=== PATIENT | female | born 1950 | race Caucasian/White ===

== ENCOUNTER 2021-08-02 09:41 | Inpatient (IN) ==
--- NOTE | 2021-08-02 10:08 | Emergency Department Note ---
History of Present Illness General Chief complaint: Illness Time Seen by Provider: 08/02/21 09:45 Source: patient History of Present Illness Provider complaint: Shortness of breath Onset (ago): day(s) Location: chest Pain Consistency: + constant Quality: + other (Short of breath) Relieved By: + other (Oxygen) Exacerbated By: + other (Activity) Associated symptoms: + shortness of breath; no chest pain, no cough, no fever/chills, no malaise or no nausea/vomiting This is a 71-year-old female with a history of hypertension presenting with shortness of breath. She started feeling short of breath about 2 days ago. She states that she quit smoking about 30 days ago. She has had no cough. She states her shortness of breath is better with oxygen and worse with any sort of activity. She has no associated chest discomfort. She does not use oxygen at home. She states that she recently had a cardiac catheterization which she says is normal. She denies any leg swelling or pain, recent immobilization or travel. She has no history of PE or DVT. She has been vaccinated for Covid back in January. She denies any known exposure. She has had no fever or cough or cold symptoms or loss of taste or smell. She has had loose and watery diarrhea for the past 2 days. She denies any abdominal pain. She denies any urinary symptoms. She denies any history of emphysema or known lung disease. Home Medications Medication Instructions Recorded Confirmed Type acetaminophen 500 mg tablet 1,000 mg PO Q6H PRN 08/02/21 08/02/21 History (Tylenol Extra Strength) doxepin 50 mg capsule 50 mg PO HS 08/02/21 08/02/21 History felodipine 5 mg tablet,extended 5 mg PO HS 08/02/21 08/02/21 History release 24 hr metoprolol succinate 50 mg 50 mg PO BID 08/02/21 08/02/21 History tablet,extended release 24 hr omeprazole 20 mg capsule,delayed 20 mg PO DAILY 08/02/21 08/02/21 History release Allergies Allergy/AdvReac Type Severity Reaction Status Date / Time Iodinated Contrast Media Allergy Severe Difficulty Verified 08/02/21 11:19 Breathing Past Med/Surg History Medical History (Updated 08/02/21 @ 15:55 by Thom Bright MD) Hypertension Surgical History (Updated 08/02/21 @ 14:23 by LYNETTE Baptiste) H/O lumpectomy H/O tubal ligation Social History Smoking Status: Former smoker Tobacco Type: Cigarettes Smoking End Date: July 07, 2021; Preferred Language: [place] Feels Safe at Home: Yes Review of Systems See HPI for pertinent positives & negatives. and A total of 10 systems reviewed and were otherwise negative Physical Exam Vital Signs Vital Signs - 24 hr 08/02/21 09:41 08/02/21 09:42 08/02/21 09:49 Temperature 36.8 C Temperature Source Temporal Artery Scan Pulse Rate 99 H 99 H 165 H Pulse Rate from SpO2 Sensor 100 H Respiratory Rate 34 H 34 H 40 H Respiratory Effort / Characteristics Labored Short of Breath Respiratory Pattern Tachypnea Blood Pressure 123/77 118/74 Blood Pressure Mean 92 88 Blood Pressure Position Sitting Pulse Oximetry 74 L 97 86 L Oxygen Delivery Method Room Air Oxymask Nasal Cannula Oxygen Flow Rate 8 4 Sepsis Recent Fever Within 48 Hours No Sepsis New/Unexplained Change in Mental Status N/A Sepsis Action Taken by Nursing No Action Required 08/02/21 10:00 08/02/21 10:30 08/02/21 10:32 Temperature Temperature Source Pulse Rate 95 H 95 H 92 H Pulse Rate from SpO2 Sensor 95 H 92 H Respiratory Rate 36 H 34 H 37 H Respiratory Effort / Characteristics Respiratory Pattern Blood Pressure 115/66 119/62 Blood Pressure Mean 82 81 Blood Pressure Position Pulse Oximetry 99 99 99 Oxygen Delivery Method Oxymask Oxygen Flow Rate 6 Sepsis Recent Fever Within 48 Hours Sepsis New/Unexplained Change in Mental Status Sepsis Action Taken by Nursing 08/02/21 11:00 08/02/21 12:30 08/02/21 13:01 Temperature Temperature Source Pulse Rate 96 H 88 87 Pulse Rate from SpO2 Sensor 96 H 88 87 Respiratory Rate 32 H 32 H 30 H Respiratory Effort / Characteristics Respiratory Pattern Blood Pressure 118/74 131/84 119/80 Blood Pressure Mean 88 99 93 Blood Pressure Position Pulse Oximetry 97 91 99 Oxygen Delivery Method Oxygen Flow Rate Sepsis Recent Fever Within 48 Hours Sepsis New/Unexplained Change in Mental Status Sepsis Action Taken by Nursing 08/02/21 14:55 08/02/21 15:00 Temperature Temperature Source Pulse Rate 97 H 93 H Pulse Rate from SpO2 Sensor 96 H 96 H Respiratory Rate 34 H 24 Respiratory Effort / Characteristics Respiratory Pattern Blood Pressure 131/69 Blood Pressure Mean 89 Blood Pressure Position Pulse Oximetry 98 98 Oxygen Delivery Method Oxygen Flow Rate Sepsis Recent Fever Within 48 Hours Sepsis New/Unexplained Change in Mental Status Sepsis Action Taken by Nursing Constitutional: Vital signs reviewed. Eyes: Pupils are equal round reactive to light. Conjunctiva are noninjected. ENT: Pharynx is clear without erythema or exudate. Mucous membranes are dry. Neck supple without meningeal signs. Respiratory: Clear to auscultation bilaterally. Breath sounds are equal bilaterally. No wheezing or rales. No stridor. Cardiovascular: Regular rate and rhythm. No rubs or gallops. GI: Soft, nondistended and nontender. Bowel sounds are present. Musculoskeletal: No peripheral edema. No lower extremity tenderness. Integumentary: No cyanosis. or jaundice. Neurological: The patient is awake and alert. Hard of hearing. No focal deficits. Psychiatric: Normal affect. Not anxious appearing. Course Administered Medications Discontinued Medications Acetaminophen (Acetaminophen 325 Mg Tab) 650 mg PO NOW STA Stop: 08/02/21 11:31 Last Admin: 08/02/21 11:56 Dose: 650 mg Documented by: [id number] Azithromycin (Azithromycin 250 Mg Tab) 500 mg PO NOW ONE Stop: 08/02/21 12:42 Last Admin: 08/02/21 13:43 Dose: 500 mg Documented by: [id number] Ceftriaxone Sodium (Rocephin) 2,000 mg in 70 mls @ 140 mls/hr IV NOW STA Stop: 08/02/21 13:10 Last Infusion: 08/02/21 14:12 Dose: 0 mls/hr Documented by: [id number] Admin: 08/02/21 13:42 Dose: 140 mls/hr Documented by: [id number] Ioversol (Optiray 320 125ml) 120 ml IV ONCE ONE Stop: 08/02/21 10:53 Last Admin: 08/02/21 10:52 Dose: 120 ml Documented by: [id number] Critical Care Time Critical Care Time: Yes Total Critical Care Time: 40 I have personally spent approximately 40 minutes of critical care time in the direct management of this patient. This includes bedside care, interpretation of diagnostic studies, and testing, discussion with consultants, patient, and family members, and other required patient management activities. These minutes are in excess of all separately billable procedures. Medical Decision Making Differential Diagnosis COVID-19, multifocal pneumonia, hypoxic respiratory failure, hypercapnia, pulmonary embolism Medical Records Attestation: I reviewed the patient's medical records. I did perform a limited focused review of portions of the patient's old chart on the electronic medical record. The patient has had no recent pertinent visits to this hospital. I did obtain records via the [facility] system and she was seen on July 21 by her doctor for urinary symptoms and treated with Bactrim. Her prior urine culture grew out pansensitive E. coli. She was seen by cardiology July 22 for routine follow-up visit for labile hypertension. She did not have a cardiac catheterization. She did have an echocardiogram from February 27, 2021 her EF was 60-64. The LV wall thickness is mildly increased concentrically. No wall motion abnormality. The ventricular diastolic function is mildly abnormal grade 1. She was noted to have nocturnal oximetry testing which showed significant hypoxia. She declined the use of supplemental O2 as she had no symptoms. Urine culture from July 21 grew out pansensitive E. coli. Home Medications Current Medication List: was personally reviewed by me Laboratory Data Attestation: I reviewed the patient's lab results. Result diagrams: 08/02/21 10:27 08/02/21 10:27 Lab Results 08/02/21 08/02/21 08/02/21 Range/Units 10:27 10:27 10:27 WBC 11.31 H (4.8-10.8) K/uL RBC 5.07 (4.2-5.4) M/uL Hgb 15.8 (12.0-16.0) g/dL POC Hgb (12.0-16.0) g/dl Hct 47.4 H (37-47) % POC Hct (37-47) % MCV 93.5 (80-100) fL MCH 31.2 (25-34) pg MCHC 33.3 (32-36) g/dL RDW Std Deviation 47.3 H (36.4-46.3) fL RDW Coeff of Jose 14.1 (11.5-14.5) % Plt Count 78 L (130-400) K/uL MPV 10.1 (7.4-10.4) fL Immature Gran % (Auto) 1.3 % Neut % (Auto) 75.5 % Lymph % (Auto) 17.9 % [place] % (Auto) 4.8 % Eos % (Auto) 0.3 % Baso % (Auto) 0.2 % Neut # (Auto) 8.54 H (1.4-6.5) K/uL Lymph # (Auto) 2.03 (1.2-3.4) K/uL [place] # (Auto) 0.54 (0.11-0.59) K/uL Eos # (Auto) 0.03 (0-0.5) K/uL Baso # (Auto) 0.02 (0-0.2) K/uL Immature Gran # (Auto) 0.15 H (0.00-0.02) K/uL Absolute Nucleated RBC 0.21 H (0-0) K/uL Nucleated RBC % (auto) 1.8 % PT 16.2 H (9.0-12.0) Seconds INR 1.7 H (0.9-1.1) APTT 31.5 H (21.0-31.0) Seconds PTT Ratio 1.2 D-Dimer 10386 H* (0-500) ug/L FEU ABG pH (7.35-7.45) ABG pCO2 (35-46) mmHg ABG pO2 (80-95) mmHg ABG HCO3 (19-24) mmol/L ABG O2 Saturation (90-95) % ABG Base Excess (-9-1.8) mEq/L Anthony Test (Pos) Barometric Pressure mm/Hg Oxygen Given POC Sodium (135-144) mmol/L Sodium 137 (136-145) mmol/L POC Potassium (3.3-5.0) mmol/L Potassium 5.3 H (3.5-5.1) mmol/L POC Chloride (101-112) mmol/L Chloride 108 H (98-107) mmol/L Carbon Dioxide 19 L (21-32) mmol/L POC Total CO2 (24-31) mmol/L Anion Gap 10.0 (3-11) POC Anion Gap (16-25) mmol/L POC BUN (7-18) mg/dl BUN 84 H (7-18) mg/dl Creatinine 1.38 H (0.6-1.2) mg/dl POC Creatinine (0.6-1.3) mg/dl Est Cr Clr Drug Dosing 32.1 ml/min Est GFR ( Amer) 44.8 ml/min Est GFR (Non-Af Amer) 38.6 ml/min BUN/Creatinine Ratio 60.9 H (10-20) Glucose 110 H (70-99) mg/dl POC Glucose (other) (70-99) mg/dl Lactate (0.4-2.0) mmol/L Calcium 8.3 L (8.5-10.1) mg/dl POC Ioniz Calcium Antonino (1.12-1.32) mmol/l Magnesium 2.5 H (1.8-2.4) mg/dl Total Bilirubin 0.7 (0.2-1) mg/dl AST 370 H (15-37) U/L ALT 93 H (12-78) U/L Alkaline Phosphatase 254 H (45-117) U/L Troponin I < 0.015 (0-0.045) ng/ml Total Protein 7.2 (6.4-8.2) gm/dl Albumin 3.0 L (3.4-5.0) gm/dl Globulin 4.2 H (2.5-4.0) gm/dl Albumin/Globulin Ratio 0.7 L (0.9-2) Urine Color Urine Appearance (Clear) Urine pH (4.5-7.5) Ur Specific [place] (1.000-1.030) Urine Protein (Negative) Urine Glucose (UA) (Negative) Urine Ketones (Negative) Urine Blood (Negative) Urine Nitrite (Negative) Urine Bilirubin (Negative) Urine Urobilinogen (Negative) Ur Leukocyte Esterase (Negative) Urine WBC (Auto) (0-5) /hpf Urine RBC (Auto) (0-4) /hpf U Hyaline Cast (Auto) (0-5) /lpf U Epithel Cells (Auto) (0-5) /lpf Urine Bacteria (Auto) (Negative) Granular Casts (0) /lpf Urine Yeast Anaplasma Smear Lyme Disease IgG Ab (Negative) Lyme Disease IgM Ab (Negative) COVID-19 Eval Order SARS-CoV-2 (PCR) (Negative) 08/02/21 08/02/21 08/02/21 Range/Units 10:30 10:30 10:37 WBC (4.8-10.8) K/uL RBC (4.2-5.4) M/uL Hgb (12.0-16.0) g/dL POC Hgb 16.3 H (12.0-16.0) g/dl Hct (37-47) % POC Hct 48 H (37-47) % MCV (80-100) fL MCH (25-34) pg MCHC (32-36) g/dL RDW Std Deviation (36.4-46.3) fL RDW Coeff of Jose (11.5-14.5) % Plt Count (130-400) K/uL MPV (7.4-10.4) fL Immature Gran % (Auto) % Neut % (Auto) % Lymph % (Auto) % [place] % (Auto) % Eos % (Auto) % Baso % (Auto) % Neut # (Auto) (1.4-6.5) K/uL Lymph # (Auto) (1.2-3.4) K/uL [place] # (Auto) (0.11-0.59) K/uL Eos # (Auto) (0-0.5) K/uL Baso # (Auto) (0-0.2) K/uL Immature Gran # (Auto) (0.00-0.02) K/uL Absolute Nucleated RBC (0-0) K/uL Nucleated RBC % (auto) % PT (9.0-12.0) Seconds INR (0.9-1.1) APTT (21.0-31.0) Seconds PTT Ratio D-Dimer (0-500) ug/L FEU ABG pH (7.35-7.45) ABG pCO2 (35-46) mmHg ABG pO2 (80-95) mmHg ABG HCO3 (19-24) mmol/L ABG O2 Saturation (90-95) % ABG Base Excess (-9-1.8) mEq/L Anthony Test (Pos) Barometric Pressure mm/Hg Oxygen Given POC Sodium 138 (135-144) mmol/L Sodium (136-145) mmol/L POC Potassium 5.5 H (3.3-5.0) mmol/L Potassium (3.5-5.1) mmol/L POC Chloride 110 (101-112) mmol/L Chloride (98-107) mmol/L Carbon Dioxide (21-32) mmol/L POC Total CO2 20 L (24-31) mmol/L Anion Gap (3-11) POC Anion Gap 15.0 L (16-25) mmol/L POC BUN 85 H (7-18) mg/dl BUN (7-18) mg/dl Creatinine (0.6-1.2) mg/dl POC Creatinine 1.4 H (0.6-1.3) mg/dl Est Cr Clr Drug Dosing ml/min Est GFR ( Amer) ml/min Est GFR (Non-Af Amer) ml/min BUN/Creatinine Ratio (10-20) Glucose (70-99) mg/dl POC Glucose (other) 110 H (70-99) mg/dl Lactate (0.4-2.0) mmol/L Calcium (8.5-10.1) mg/dl POC Ioniz Calcium Antonino 1.12 (1.12-1.32) mmol/l Magnesium (1.8-2.4) mg/dl Total Bilirubin (0.2-1) mg/dl AST (15-37) U/L ALT (12-78) U/L Alkaline Phosphatase (45-117) U/L Troponin I (0-0.045) ng/ml Total Protein (6.4-8.2) gm/dl Albumin (3.4-5.0) gm/dl Globulin (2.5-4.0) gm/dl Albumin/Globulin Ratio (0.9-2) Urine Color Urine Appearance (Clear) Urine pH (4.5-7.5) Ur Specific [place] (1.000-1.030) Urine Protein (Negative) Urine Glucose (UA) (Negative) Urine Ketones (Negative) Urine Blood (Negative) Urine Nitrite (Negative) Urine Bilirubin (Negative) Urine Urobilinogen (Negative) Ur Leukocyte Esterase (Negative) Urine WBC (Auto) (0-5) /hpf Urine RBC (Auto) (0-4) /hpf U Hyaline Cast (Auto) (0-5) /lpf U Epithel Cells (Auto) (0-5) /lpf Urine Bacteria (Auto) (Negative) Granular Casts (0) /lpf Urine Yeast Anaplasma Smear Lyme Disease IgG Ab (Negative) Lyme Disease IgM Ab (Negative) COVID-19 Eval Order Covid19 at [facility] SARS-CoV-2 (PCR) NEGATIVE (Negative) 08/02/21 08/02/21 08/02/21 Range/Units 10:51 10:52 11:15 WBC (4.8-10.8) K/uL RBC (4.2-5.4) M/uL Hgb (12.0-16.0) g/dL POC Hgb (12.0-16.0) g/dl Hct (37-47) % POC Hct (37-47) % MCV (80-100) fL MCH (25-34) pg MCHC (32-36) g/dL RDW Std Deviation (36.4-46.3) fL RDW Coeff of Jose (11.5-14.5) % Plt Count (130-400) K/uL MPV (7.4-10.4) fL Immature Gran % (Auto) % Neut % (Auto) % Lymph % (Auto) % [place] % (Auto) % Eos % (Auto) % Baso % (Auto) % Neut # (Auto) (1.4-6.5) K/uL Lymph # (Auto) (1.2-3.4) K/uL [place] # (Auto) (0.11-0.59) K/uL Eos # (Auto) (0-0.5) K/uL Baso # (Auto) (0-0.2) K/uL Immature Gran # (Auto) (0.00-0.02) K/uL Absolute Nucleated RBC (0-0) K/uL Nucleated RBC % (auto) % PT (9.0-12.0) Seconds INR (0.9-1.1) APTT (21.0-31.0) Seconds PTT Ratio D-Dimer (0-500) ug/L FEU ABG pH 7.32 L (7.35-7.45) ABG pCO2 35 (35-46) mmHg ABG pO2 150 H (80-95) mmHg ABG HCO3 18 L (19-24) mmol/L ABG O2 Saturation 99.0 H (90-95) % ABG Base Excess -7.4 (-9-1.8) mEq/L Anthony Test Pos (Pos) Barometric Pressure 733.5 mm/Hg Oxygen Given 6 L POC Sodium (135-144) mmol/L Sodium (136-145) mmol/L POC Potassium (3.3-5.0) mmol/L Potassium (3.5-5.1) mmol/L POC Chloride (101-112) mmol/L Chloride (98-107) mmol/L Carbon Dioxide (21-32) mmol/L POC Total CO2 (24-31) mmol/L Anion Gap (3-11) POC Anion Gap (16-25) mmol/L POC BUN (7-18) mg/dl BUN (7-18) mg/dl Creatinine (0.6-1.2) mg/dl POC Creatinine (0.6-1.3) mg/dl Est Cr Clr Drug Dosing ml/min Est GFR ( Amer) ml/min Est GFR (Non-Af Amer) ml/min BUN/Creatinine Ratio (10-20) Glucose (70-99) mg/dl POC Glucose (other) (70-99) mg/dl Lactate 1.2 (0.4-2.0) mmol/L Calcium (8.5-10.1) mg/dl POC Ioniz Calcium Antonino (1.12-1.32) mmol/l Magnesium (1.8-2.4) mg/dl Total Bilirubin (0.2-1) mg/dl AST (15-37) U/L ALT (12-78) U/L Alkaline Phosphatase (45-117) U/L Troponin I (0-0.045) ng/ml Total Protein (6.4-8.2) gm/dl Albumin (3.4-5.0) gm/dl Globulin (2.5-4.0) gm/dl Albumin/Globulin Ratio (0.9-2) Urine Color Dark Yellow Urine Appearance Cloudy A (Clear) Urine pH 5.0 (4.5-7.5) Ur Specific [place] 1.022 (1.000-1.030) Urine Protein 1+ H (Negative) Urine Glucose (UA) Negative (Negative) Urine Ketones 1+ H (Negative) Urine Blood 3+ H (Negative) Urine Nitrite Negative (Negative) Urine Bilirubin Negative (Negative) Urine Urobilinogen Negative (Negative) Ur Leukocyte Esterase 3+ H (Negative) Urine WBC (Auto) >30 H (0-5) /hpf Urine RBC (Auto) 0-4 (0-4) /hpf U Hyaline Cast (Auto) 5-10 H (0-5) /lpf U Epithel Cells (Auto) >30 H (0-5) /lpf Urine Bacteria (Auto) 1+ H (Negative) Granular Casts 1-5 H (0) /lpf Urine Yeast Not Reportable Anaplasma Smear Lyme Disease IgG Ab (Negative) Lyme Disease IgM Ab (Negative) COVID-19 Eval Order SARS-CoV-2 (PCR) (Negative) 08/02/21 08/02/21 Range/Units 11:59 11:59 WBC (4.8-10.8) K/uL RBC (4.2-5.4) M/uL Hgb (12.0-16.0) g/dL POC Hgb (12.0-16.0) g/dl Hct (37-47) % POC Hct (37-47) % MCV (80-100) fL MCH (25-34) pg MCHC (32-36) g/dL RDW Std Deviation (36.4-46.3) fL RDW Coeff of Jose (11.5-14.5) % Plt Count (130-400) K/uL MPV (7.4-10.4) fL Immature Gran % (Auto) % Neut % (Auto) % Lymph % (Auto) % [place] % (Auto) % Eos % (Auto) % Baso % (Auto) % Neut # (Auto) (1.4-6.5) K/uL Lymph # (Auto) (1.2-3.4) K/uL [place] # (Auto) (0.11-0.59) K/uL Eos # (Auto) (0-0.5) K/uL Baso # (Auto) (0-0.2) K/uL Immature Gran # (Auto) (0.00-0.02) K/uL Absolute Nucleated RBC (0-0) K/uL Nucleated RBC % (auto) % PT (9.0-12.0) Seconds INR (0.9-1.1) APTT (21.0-31.0) Seconds PTT Ratio D-Dimer (0-500) ug/L FEU ABG pH (7.35-7.45) ABG pCO2 (35-46) mmHg ABG pO2 (80-95) mmHg ABG HCO3 (19-24) mmol/L ABG O2 Saturation (90-95) % ABG Base Excess (-9-1.8) mEq/L Anthony Test (Pos) Barometric Pressure mm/Hg Oxygen Given POC Sodium (135-144) mmol/L Sodium (136-145) mmol/L POC Potassium (3.3-5.0) mmol/L Potassium (3.5-5.1) mmol/L POC Chloride (101-112) mmol/L Chloride (98-107) mmol/L Carbon Dioxide (21-32) mmol/L POC Total CO2 (24-31) mmol/L Anion Gap (3-11) POC Anion Gap (16-25) mmol/L POC BUN (7-18) mg/dl BUN (7-18) mg/dl Creatinine (0.6-1.2) mg/dl POC Creatinine (0.6-1.3) mg/dl Est Cr Clr Drug Dosing ml/min Est GFR ( Amer) ml/min Est GFR (Non-Af Amer) ml/min BUN/Creatinine Ratio (10-20) Glucose (70-99) mg/dl POC Glucose (other) (70-99) mg/dl Lactate (0.4-2.0) mmol/L Calcium (8.5-10.1) mg/dl POC Ioniz Calcium Antonino (1.12-1.32) mmol/l Magnesium (1.8-2.4) mg/dl Total Bilirubin (0.2-1) mg/dl AST (15-37) U/L ALT (12-78) U/L Alkaline Phosphatase (45-117) U/L Troponin I (0-0.045) ng/ml Total Protein (6.4-8.2) gm/dl Albumin (3.4-5.0) gm/dl Globulin (2.5-4.0) gm/dl Albumin/Globulin Ratio (0.9-2) Urine Color Urine Appearance (Clear) Urine pH (4.5-7.5) Ur Specific [place] (1.000-1.030) Urine Protein (Negative) Urine Glucose (UA) (Negative) Urine Ketones (Negative) Urine Blood (Negative) Urine Nitrite (Negative) Urine Bilirubin (Negative) Urine Urobilinogen (Negative) Ur Leukocyte Esterase (Negative) Urine WBC (Auto) (0-5) /hpf Urine RBC (Auto) (0-4) /hpf U Hyaline Cast (Auto) (0-5) /lpf U Epithel Cells (Auto) (0-5) /lpf Urine Bacteria (Auto) (Negative) Granular Casts (0) /lpf Urine Yeast Anaplasma Smear See Comment Lyme Disease IgG Ab Positive A (Negative) Lyme Disease IgM Ab Positive A (Negative) COVID-19 Eval Order SARS-CoV-2 (PCR) (Negative) Imaging Data Radiologist's Impression: Chest CT 08/02/21 11:29 CT chest diagnostic wo con CT DOSE: 275.95 mGycm CLINICAL HISTORY: 71 years-old Female with hypoxic eval for pna/saddle embolus. Acute shortness of breath TECHNIQUE: Multiaxial CT images of the chest were performed without contrast. A dose lowering technique was utilized adhering to the principles of ALARA. COMPARISON: None. FINDINGS: Motion degraded exam. Unremarkable thyroid. 10 mm paratracheal lymph node on image 116 series 4. The heart is normal in size. Extensive coronary artery calcifications. No pericardial effusion. Extensive atherosclerotic plaque of the thoracic aorta without aneurysm. Mild dilation of the main pulmonary artery measures 3.2 cm. Moderate emphysema. No pneumothorax, pleural effusion or overt pulmonary edema. Nodular consolidative opacities of the right upper lobe measure up to 2.4 cm on image 79 series 4. Additional area of nodular consolidation measures 1.4 x 2.2 cm on image 94 with a linear component and possible mucous plugging. There are adjacent groundglass nodules. Subcentimeter groundglass nodular opacity of the superior segment right lower lobe on image 137 with mild subsegmental consolidation of the right lung base. Central airways are patent. Metallic foci are noted within the gastroesophageal junction distribution. No acute process of the imaged upper abdomen. Heterogeneity of the liver suggests geographic hepatic steatosis. Unremarkable soft tissues. No acute fracture. IMPRESSION: 1. Motion degraded exam. 2. Multifocal patchy opacities throughout the right lung are suggestive of pneumonia. This includes areas of nodular consolidation within the right upper lobe measuring up to 2.5 cm. Follow-up chest CT after treatment course is recommended to document resolution. 3. Mild mediastinal adenopathy is likely reactive. 4. Emphysema. 5. Extensive coronary artery calcifications. 6. Suggested pulmonary artery hypertension. ACT 112: Negative or not required by law. Electronically signed by: Jake Hager M.D. 08/02/2021 12:28 PM Venous Doppler Study 08/02/21 12:35 BILATERAL LOWER EXTREMITY VENOUS DOPPLER HISTORY: Acute pain and swelling of the lower legs eval for dvt COMPARISON STUDY: None. FINDINGS: There is normal compressibility, flow, and augmentation within the bilateral lower extremity deep venous systems. Limited visualization of the calf veins. IMPRESSION: No DVT within the right or left lower extremity. ACT 112: Negative or not required by law. Electronically signed by: Jake Hager M.D. 08/02/2021 3:02 PM Liver Ultrasound 08/02/21 13:32 US liver HISTORY: 71 years-old Female transaminitis acutely elevated LFTs COMPARISON: None TECHNIQUE: Multiple real-time sonographic images of the abdominal right upper quadrant were obtained assessing grayscale appearance and color flow FINDINGS: The gallbladder is mildly distended with trace sludge. No shadowing c holelithiasis or gallbladder wall thickening. Common bile duct is upper limits of normal measuring 7 mm. There is a suggested periportal lymph node which measures 1.6 x 1.2 x 0.7 cm. The visualized pancreas is unremarkable. The liver appears heterogeneous. No hepatic mass identified. No marginal nodularity. IMPRESSION: 1. Nonspecific mildly heterogeneous appearance of the hepatic parenchyma. No hepatic mass identified. 2. Gallbladder sludge without cholelithiasis or sonographic evidence of acute cholecystitis. 3. No biliary ductal dilation. 4. Likely physiologic periportal lymph node measures 1.6 cm. ACT 112: Negative or not required by law. The above report was generated using voice recognition software. It may contain grammatical, syntax or spelling errors. Electronically signed by: Jake Hager M.D. 08/02/2021 3:19 PM ECG Data Attestation: I personally reviewed and interpreted this ECG as follows: Indication: + SOB/dyspnea Rate (beats per minute): 98 Rhythm: + normal sinus ECG Seibert: + Normal ECG ST segments: no ST elevation ECG Findings: no PVCs Comparison ECG Date: no prior available MDM Narrative I did evaluate the patient as noted above. The patient is presenting with difficulty breathing for 2 days with diarrhea and hypoxemia. She was placed on supplemental oxygen via oxygen mask at 6 L for an O2 sat of 92%. She was placed in respiratory isolation. Covid testing was obtained. IV access was established. I did place an order for continuous cardiac monitoring. The monitor showed normal sinus rhythm at a rate of 99 bpm. I did order and personally review the patient's 12-lead EKG as described above. She has no acute ischemic changes. I did order blood cultures. I did order and review the patient's blood work as noted in the electronic medical record. CBC shows white count 11.3. Hemoglobin is 15.8. Platelet count is 78. She had a platelet coun t of 353 April 25 of this year. Her INR is 1.7. D-dimer is 17,630. Electrolytes demonstrate a potassium of 5.3. CO2 is 19. Chloride is 108. Creatinine is 1.3 with a BUN of 84. Troponin is negative. Lactate is not elevated. LFTs show an AST of 370, ALT of 93 and alk phos of 254. ABG shows a pH of 7.3. PA CO2 is 35 and PaO2 is 150 on 6 L. Urine analysis does show an infection. I did order a CT of the chest. She is allergic to IV contrast and developed symptoms which she describes as feeling like she was going to . I did review the images myself as well as the radiology report as described above. She has a right-sided multifocal pneumonia. There is some nodular consolidatio n as well. I did discuss the test results with the patient. I did order a Lyme test and anaplasmosis smear. Covid testing came back negative. I did recommend hospitalization. I did discuss the case with the hospitalist group. I also spoke to the case assembler. I did order a Doppler of the lower extremities bilaterally to evaluate for DVT. These were negative. I did not start her on anticoagulation as the patient has an elevated INR and thrombocytopenia. She will get a VQ scan in the hospital. I did treat the patient with 2 g of ceftriaxone IV and Zithromax 500 mg p.o. Later her Lyme test came back positive with both the IgG and IgM antibodies being positive. Anaplasmosis smear was negative. This may explain why her platelet count is low and her LFTs are elevated. I did discuss this with the patient and her son. Her son states that she has had prior Lyme disease and that she lives in the [facility]. She denies any known tick bites. The patient was admitted to the hospital. Impression & Plan Acute respiratory failure with hypoxia, Multifocal pneumonia, Thrombocytopenia, Abnormal LFTs, Positive Lyme disease serology, D-dimer, elevated, Hyperkalemia, Acute UTI, Elevated serum creatinine Discharge Plan Visit Data Chief Complaint: Illness ED Provider: Thom Bright Discharge Problem: Acute respiratory failure with hypoxia, Multifocal pneumonia, Thrombocytopenia, Abnormal LFTs, Positive Lyme disease serology, D-dimer, elevated, Hyperkalemia, Acute UTI, Elevated serum creatinine Patient Disposition: Admitted As Inpatient Discharge Instructions Interventions: ED Discharge Assessment Last Done: 08/02/21 15:27 Forms Stand Alone Forms: [facility] Prescriptions Prescriptions: No Action doxepin 50 mg capsule 50 mg PO HS RF: 0 metoprolol succinate 50 mg tablet extended release 24 hr 50 mg PO BID RF: 0 felodipine 5 mg tablet extended release 24 hr 5 mg PO HS RF: 0 acetaminophen [Tylenol Extra Strength] 500 mg Tablet 1,000 mg PO Q6H PRN (Reason: Back Pain) RF: 0 omeprazole 20 mg Capsule,Delayed Release(Dr/Ec) 20 mg PO DAILY RF: 0 Referrals Referrals: PCP,NO [Physician] -
[2021-08-02 10:50] LABS: iSTAT Creatinine 1.4 mg/dl (0.6-1.3); iSTAT Hemoglobin 16.3 g/dl (12.0-16.0); iSTAT Ionized Calcium 1.12 mmol/l (1.12-1.32); iSTAT Potassium 5.5 mmol/L (3.3-5.0)
[2021-08-02] MEDS ORDERED: OPTIRAY 320 125ml IV ONE (10:52)
[2021-08-02 11:02] LABS: Alanine Aminotransferase 93 U/L (12-78); Aspartate Aminotransferase 370 U/L (15-37); BUN Creatinine Ratio 60.9 (10-20); Blood Urea Nitrogen 84 mg/dl (7-18); Calcium 8.3 mg/dl (8.5-10.1); Carbon Dioxide 19 mmol/L (21-32); Chloride 108 mmol/L (98-107); Creatinine Clr Calc Pharmacy 32.1 ml/min; Est GFR (African American) 44.8 ml/min; Est GFR (Non-African American) 38.6 ml/min; Glucose 110 mg/dl (70-99); Magnesium 2.5 mg/dl (1.8-2.4); Potassium 5.3 mmol/L (3.5-5.1); Sodium 137 mmol/L (136-145)
[2021-08-02 11:05] LABS: Base Excess ABG -7.4 mEq/L (-9-1.8); HCO3 ABG 18 mmol/L (19-24); PCO2 ABG 35 mmHg (35-46); PO2 ABG 150 mmHg (80-95); pH ABG 7.32 (7.35-7.45)
[2021-08-02 11:07] LABS: Albumin Globulin Ratio 0.7 (0.9-2); Alkaline Phosphatase 254 U/L (45-117); Bilirubin,Total 0.7 mg/dl (0.2-1); Globulin 4.2 gm/dl (2.5-4.0); Total Protein 7.2 gm/dl (6.4-8.2); Troponin I < 0.015 ng/ml (0-0.045)
[2021-08-02 11:08] LABS: INR 1.7 (0.9-1.1); Partial Thromboplastin Ratio 1.2; Partial Thromboplastin Time 31.5 Seconds (21.0-31.0); Prothrombin Time 16.2 Seconds (9.0-12.0)
[2021-08-02 11:08] LABS: Allen Test Pos (Pos)
[2021-08-02 11:16] LABS: Hematocrit (blood only) 47.4 % (37-47); Hemoglobin 15.8 g/dL (12.0-16.0); Mean Corpuscular Hemoglobin 31.2 pg (25-34); Mean Corpuscular Hgb Conc 33.3 g/dL (32-36); Mean Corpuscular Volume 93.5 fL (80-100); Mean Platelet Volume 10.1 fL (7.4-10.4); Nucleated RBC # (auto) 0.21 K/uL (0-0); Nucleated RBC % (auto) 1.8 %; Platelet Count 78 K/uL (130-400); RDW Coefficient of Variation 14.1 % (11.5-14.5); RDW Standard Deviation 47.3 fL (36.4-46.3); Red Blood Count 5.07 M/uL (4.2-5.4); White Blood Count 11.31 K/uL (4.8-10.8)
[2021-08-02 11:21] LABS: D Dimer 17630 ug/L FEU (0-500)
[2021-08-02 11:26] LABS: Basophils # (auto) 0.02 K/uL (0-0.2); Basophils % (auto) 0.2 %; Eosinophils # (auto) 0.03 K/uL (0-0.5); Eosinophils % (auto) 0.3 %; Immature Granulocytes # (auto) 0.15 K/uL (0.00-0.02); Immature Granulocytes % (auto) 1.3 %; Lymphocytes # (auto) 2.03 K/uL (1.2-3.4); Lymphocytes % (auto) 17.9 %; Monocytes # (auto) 0.54 K/uL (0.11-0.59); Monocytes % (auto) 4.8 %; Neutrophils # (auto) 8.54 K/uL (1.4-6.5); Neutrophils % (auto) 75.5 %
[2021-08-02 11:29] LABS: Appearance Urine Cloudy (Clear); Bacteria Urine Automated 1+ (Negative); Bilirubin Urine Negative (Negative); Blood Urine 3+ (Negative); Color Urine Dark Yellow; Epithelial Cell Urine Auto >30 /lpf (0-5); Glucose Urine UA Negative (Negative); Ketones Urine 1+ (Negative); Leukocyte Esterase Urine 3+ (Negative); Nitrite Urine Negative (Negative); Protein Urine 1+ (Negative); Specific Gravity Urine 1.022 (1.000-1.030); Urobilinogen Urine Negative (Negative); WBC Urine Automated >30 /hpf (0-5)
[2021-08-02] MEDS ORDERED: ACETAMINOPHEN 325 MG TAB PO STA (11:30)
[2021-08-02 11:39] LABS: RBC Urine Automated 0-4 /hpf (0-4)
--- NOTE | 2021-08-02 12:30 | CT Scan Report ---
CT chest diagnostic wo con CT DOSE: 275.95 mGycm CLINICAL HISTORY: 71 years-old Female with hypoxic eval for pna/saddle embolus. Acute shortness of b reath TECHNIQUE: Multiaxial CT images of the chest were performed without contrast. A dose lowering techni que was utilized adhering to the principles of ALARA. COMPARISON: None. FINDINGS: Motion degraded exam. Unremarkable thyroid. 10 mm paratracheal lymph node on image 116 series 4. The heart is normal in size. Extensive coronary artery calcifications. No pericardial effusion. Extensive atherosclerotic plaque of the thoracic aorta without aneurysm. Mild dilation of the main pulmonary a rtery measures 3.2 cm. Moderate emphysema. No pneumothorax, pleural effusion or overt pulmonary edema. Nodular consolidative opacities of the right upper lobe measure up to 2.4 cm on image 79 series 4. Additional area of nodu lar consolidation measures 1.4 x 2.2 cm on image 94 with a linear component and possible mucous plugg ing. There are adjacent groundglass nodules. Subcentimeter groundglass nodular opacity of the superio r segment right lower lobe on image 137 with mild subsegmental consolidation of the right lung base. Central airways are patent. Metallic foci are noted within the gastroesophageal junction distribution. No acute process of the im aged upper abdomen. Heterogeneity of the liver suggests geographic hepatic steatosis. Unremarkable so ft tissues. No acute fracture. IMPRESSION: 1. Motion degraded exam. 2. Multifocal patchy opacities throughout the right lung are suggestive of pneumonia. This includes a reas of nodular consolidation within the right upper lobe measuring up to 2.5 cm. Follow-up chest CT after treatment course is recommended to document resolution. 3. Mild mediastinal adenopathy is likely reactive. 4. Emphysema. 5. Extensive coronary artery calcifications. 6. Suggested pulmonary artery hypertension. ACT 112: Negative or not required by law. Electronically signed by: Jake Hager M.D. 08/02/2021 12:28 PM
[2021-08-02] MEDS ORDERED: cefTRIAXone SODIUM 2,000 MG/70 ML BAG IV STA (12:41)
[2021-08-02] MEDS ORDERED: AZITHROMYCIN 250 MG TAB PO ONE (12:41)
[2021-08-02 13:56] LABS: Lyme Ab IgG w/WB Rflx Positive (Negative); Lyme Ab IgM w/WB Rflx Positive (Negative)
--- NOTE | 2021-08-02 15:03 | Ultrasound Report ---
BILATERAL LOWER EXTREMITY VENOUS DOPPLER HISTORY: Acute pain and swelling of the lower legs eval for dvt COMPARISON STUDY: None. FINDINGS: There is normal compressibility, flow, and augmentation within the bilateral lower extremit y deep venous systems. Limited visualization of the calf veins. IMPRESSION: No DVT within the right or left lower extremity. ACT 112: Negative or not required by law. Electronically signed by: Jake Hager M.D. 08/02/2021 3:02 PM
--- NOTE | 2021-08-02 15:20 | Ultrasound Report ---
US liver HISTORY: 71 years-old Female transaminitis acutely elevated LFTs COMPARISON: None TECHNIQUE: Multiple real-time sonographic images of the abdominal right upper quadrant were obtained assessing grayscale appearance and color flow FINDINGS: The gallbladder is mildly distended with trace sludge. No shadowing cholelithiasis or gallbladder wal l thickening. Common bile duct is upper limits of normal measuring 7 mm. There is a suggested peripor jeanette lymph node which measures 1.6 x 1.2 x 0.7 cm. The visualized pancreas is unremarkable. The liver appears heterogeneous. No hepatic mass identified. No marginal nodularity. IMPRESSION: 1. Nonspecific mildly heterogeneous appearance of the hepatic parenchyma. No hepatic mass identified. 2. Gallbladder sludge without cholelithiasis or sonographic evidence of acute cholecystitis. 3. No biliary ductal dilation. 4. Likely physiologic periportal lymph node measures 1.6 cm. ACT 112: Negative or not required by law. The above report was generated using voice recognition software. It may contain grammatical, syntax o r spelling errors. Electronically signed by: Jake Hager M.D. 08/02/2021 3:19 PM
[2021-08-02] MEDS ORDERED: ALBUT/IPRATROP 3MG/0.5MG NEB 3 ML VIAL NEB PRN (16:09)
--- NOTE | 2021-08-02 16:29 | History & Physical Report ---
Date of Service August 02, 2021 Assessment & Plan (1) Acute respiratory failure with hypoxia: (2) CAP (community acquired pneumonia): (3) Multifocal pneumonia: Plan: -Admit to telemetry -Patient presenting from home with reports of worsening generalized weakness and shortness of breath x 1 week -In the ED, patient hypoxic on room air at 74%, currently requiring 6 L of oxygen via oxymask -CT chest showing multifocal right-sided pneumonia -D-dimer 17,000, unable to do CTA due to anaphylactic dye allergy. BL LE Doppler negative for DVT. Echo ordered to evaluate for right heart strain. VQ scan ordered -S/p ceftriaxone and azithromycin in the ED, will continue with ceftriaxone and doxycycline given positive Lyme test -Currently does not meet sepsis criteria -Follow blood cultures -COVID-19 testing negative (4) Thrombocytopenia: (5) Elevated LFTs: (6) Coagulopathy: Plan: -Platelets 78K -AST 370, ALT 93, alk phos 254 -INR 1.7 -RUQ US shows gallbladder sludge. MRCP ordered -GI consult, input appreciated -Lyme infection may be contributing. Anaplasma smear negative, PCR requested. (7) Hypertension: Plan: -BP controlled, continue felodipine and metoprolol (8) PALMIRA (acute kidney injury): Plan: -Creatinine 1.3 (baseline ~ 0.9) -Likely prerenal due to acute illness -IVF, follow renal functions (9) Lyme disease: Plan: -Lyme IgG and IgM positive -On IV doxycycline as above (10) Abnormal urinalysis: Plan: -UA suggest possible UTI versus contaminant -Recently treated for a pansensitive E. coli UTI as an outpatient -Follow urine culture (11) Pulmonary nodule: Plan: -CT chest shows nodular consolidation within the right upper lobe measuring up to 2.5 cm -Outpatient follow-up (12) DVT prophylaxis: Plan: -SQ heparin Admission and Anticipated Discharge Date Admission Date: August 02, 2021 History of Present Illness Chief Complaint: Weakness, shortness of breath Primary Care Provider: José Miguel Nicholas MD 71-year-old female with PMH HTN, osteoarthritis, tobacco use disorder, and other problems to below who presents the ED for evaluation of generalized weakness and shortness of breath. Patient reports worsening generalized w eakness over the past 1 week. She reports that she is barely able to walk to the bathroom. She has had worsening shortness of breath. Denies cough and sputum production. No fevers or chills. Patient with a 30-year history of smoking, quitting 1 month ago. Patient reports a very poor appetite and has had some diarrhea. She denies bright red blood per rectum and dark tarry stools. She denies abdominal pain, nausea, vomiting. She reports feeling lightheaded and dizzy at times however no syncopal event. She denies urinary symptoms. In the ED, patient was found to be hypoxic on room air at 74%, she is currently requiring 6 L of oxygen via oxymask. CT chest shows a right-sided multifocal pneumonia. Labs show WBC 11 K, INR 1.7 (patient is not anticoagulated), D-dimer 17,000, creatinine 1.3 (up from baseline ~ 0.9), AST 370, ALT 93, alk Phos 254. Lyme IgG and IgM are positive. UA suggest possible UTI. Allergies Allergy/AdvReac Type Severity Reaction Status Date / Time Iodinated Contrast Media Allergy Severe Difficulty Verified 08/02/21 11:19 Breathing Past Med/Surg History Medical History Hypertension Osteoarthritis Surgical History H/O lumpectomy H/O tubal ligation Family History Father Cancer Mother Hypertension Social History Smoking Status: Former smoker Tobacco Type: Cigarettes Second Hand Exposure: No; Hx Alcohol Use: No Hx Substance Use: No Preferred Language: Georgian Steward/Stewardess Smoke Room Required: No Beliefs That Will Affect Care: None Current Living Situation: Spouse Feels Safe at Home: Yes Assistive Devices: Denture - Upper, Glasses and Oxygen - Continuous Review of Systems Review of Systems: ROS per HPI, all other systems reviewed and negative Physical Exam Constitutional: WD/WN, vitals as above + ill appearing; no acute distress Eyes: PERRL, conjunctivae normal, anicteric sclerae ENMT: external ear and nose normal, oropharynx normal Respiratory: + tachypneic; no respiratory distress Auscultation: + diminished lung sounds Cardiovascular: Rate/Rhythm: regular rate and regular rhythm Vessels: normal peripheral pulses Extremities: no edema Gastrointestinal (Abdomen): normal bowel sounds, soft, nontender, no hepatosplenomegaly Musculoskeletal: Extremities: no cyanosis and no clubbing Generally weak throughout Skin: no rashes, warm and dry Neurologic: PERRL, EOMI, accommodation nl, no face palsy, no dysarthria Psychiatric: A+Ox3, euthymic affect Results & Data Results & Data ([facility]) Vital Signs (Past 12 Hours) Vital Signs Temp Pulse Resp BP Pulse Ox 08/02/21 15:00 93 H 24 131/69 98 08/02/21 14:55 97 H 34 H 98 08/02/21 13:01 87 30 H 119/80 99 08/02/21 12:30 88 32 H 131/84 91 08/02/21 11:00 96 H 32 H 118/74 97 08/02/21 10:32 92 H 37 H 119/62 99 08/02/21 10:30 95 H 34 H 99 08/02/21 10:00 95 H 36 H 115/66 99 08/02/21 09:49 165 H 40 H 118/74 86 L 08/02/21 09:42 99 H 34 H 97 08/02/21 09:41 36.8 C 99 H 34 H 123/77 74 L Laboratory Results Short CBC 08/02/21 Range/Units 10:27 WBC 11.31 H (4.8-10.8) K/uL Hgb 15.8 (12.0-16.0) g/dL Hct 47.4 H (37-47) % Plt Count 78 L (130-400) K/uL BMP 08/02/21 10:27 Sodium 137 Potassium 5.3 H Chloride 108 H Carbon Dioxide 19 L BUN 84 H Creatinine 1.38 H Glucose 110 H Calcium 8.3 L Cardiac Enzymes 08/02/21 Range/Units 10:27 Troponin I < 0.015 (0-0.045) ng/ml Liver Function 08/02/21 Range/Units 10:27 Total Bilirubin 0.7 (0.2-1) mg/dl AST 370 H (15-37) U/L ALT 93 H (12-78) U/L Alkaline Phosphatase 254 H (45-117) U/L Albumin 3.0 L (3.4-5.0) gm/dl Urine 08/02/21 Range/Units 11:15 Urine Color Dark Yellow Urine Appearance Cloudy A (Clear) Urine pH 5.0 (4.5-7.5) Ur Specific [place] 1.022 (1.000-1.030) Urine Protein 1+ H (Negative) Urine Glucose (UA) Negative (Negative) Diagnostic Findings Chest CT 08/02/21 11:29 CT chest diagnostic wo con CT DOSE: 275.95 mGycm CLINICAL HISTORY: 71 years-old Female with hypoxic eval for pna/saddle embolus. Acute shortness of breath TECHNIQUE: Multiaxial CT images of the chest were performed without contrast. A dose lowering technique was utilized adhering to the principles of ALARA. COMPARISON: None. FINDINGS: Motion degraded exam. Unremarkable thyroid. 10 mm paratracheal lymph node on image 116 series 4. The heart is normal in size. Extensive coronary artery calcifications. No pericardial effusion. Extensive atherosclerotic plaque of the thoracic aorta without aneurysm. Mild dilation of the main pulmonary artery measures 3.2 cm. Moderate emphysema. No pneumothorax, pleural effusion or overt pulmonary edema. Nodular consolidative opacities of the right upper lobe measure up to 2.4 cm on image 79 series 4. Additional area of nodular consolidation measures 1.4 x 2.2 cm on image 94 with a linear component and possible mucous plugging. There are adjacent groundglass nodules. Subcentimeter groundglass nodular opacity of the superior segment right lower lobe on image 137 with mild subsegmental consolidation of the right lung base. Central airways are patent. Metallic foci are noted within the gastroesophageal junction distribution. No acute process of the imaged upper abdomen. Heterogeneity of the liver suggests geographic hepatic steatosis. Unremarkable soft tissues. No acute fracture. IMPRESSION: 1. Motion degraded exam. 2. Multifocal patchy opacities throughout the right lung are suggestive of pneumonia. This includes areas of nodular consolidation within the right upper lobe measuring up to 2.5 cm. Follow-up chest CT after treatment course is recommended to document resolution. 3. Mild mediastinal adenopathy is likely reactive. 4. Emphysema. 5. Extensive coronary artery calcifications. 6. Suggested pulmonary artery hypertension. ACT 112: Negative or not required by law. Electronically signed by: Jake Hager M.D. 08/02/2021 12:28 PM Venous Doppler Study 08/02/21 12:35 BILATERAL LOWER EXTREMITY VENOUS DOPPLER HISTORY: Acute pain and swelling of the lower legs eval for dvt COMPARISON STUDY: None. FINDINGS: There is normal compressibility, flow, and augmentation within the bilateral lower extremity deep venous systems. Limited visualization of the calf veins. IMPRESSION: No DVT within the right or left lower extremity. ACT 112: Negative or not required by law. Electronically signed by: Jake Hager M.D. 08/02/2021 3:02 PM Liver Ultrasound 08/02/21 13:32 US liver HISTORY: 71 years-old Female transaminitis acutely elevated LFTs COMPARISON: None TECHNIQUE: Multiple real-time sonographic images of the abdominal right upper quadrant were obtained assessing grayscale appearance and color flow FINDINGS: The gallbladder is mildly distended with trace sludge. No shadowing cholelithiasis or gallbladder wall thickening. Common bile duct is upper limits of normal measuring 7 mm. There is a suggested periportal lymph node which measures 1.6 x 1.2 x 0.7 cm. The visualized pancreas is unremarkable. The liver appears heterogeneous. No hepatic mass identified. No marginal nodularity. IMPRESSION: 1. Nonspecific mildly heterogeneous appearance of the hepatic parenchyma. No hepatic mass identified. 2. Gallbladder sludge without cholelithiasis or sonographic evidence of acute cholecystitis. 3. No biliary ductal dilation. 4. Likely physiologic periportal lymph node measures 1.6 cm. ACT 112: Negative or not required by law. The above report was generated using voice recognition software. It may contain grammatical, syntax or spelling errors. Electronically signed by: Jake Hager M.D. 08/02/2021 3:19 PM Code Status & VTE Plan Code Status Patient is a full code as per my discussion with her. VTE Prophylaxis Plan VTE Prophylaxis will be ordered: Yes Supervising Physician Co-Signing Physician Notes Pt was seen and examined. Agreed with Agnes OSMAN exam, assessment and plan. 71-year-old female with PMH HTN, osteoarthritis, tobacco use disorder who presents to the ED for evaluation of generalized weakness and shortness of breath. Pt said that her breathing has been getting worst associated with SOB. She reports that she is barely able to walk to the bathroom. She has been having poor appetite and diarrhea. Denies any cough and sputum production, fevers or chills. CT chest revealed right sided multifocal pneumonia. In the ED, patient was found to be hypoxic on room air at 74%, she is currently requiring 6 L of oxygen via oxymask. Labs on admission showed WBC 11 K, INR 1., , D-dimer 17,000, creatinine 1.3 (up from baseline ~ 0.9), AST 370, ALT 93, alk Phos 254. Lyme IgG and IgM are positive. UA suggest possible UTI. Received IV ceftriaxone and azithromycin in the ED, will continue with ceftriaxone and doxycycline given positive Lyme test. Will consider to get a V/Q scan to r/o PE since pt has contrast allergies. Will get an echo. Will follow blood cx. Continue oxygen supplement. Continue monitor closely. MD Mundo
[2021-08-02] MEDS: DOXYCYCLINE HYCLATE 100 MG in DEXTROSE 5% 100 ML IV SCH (17:17)
[2021-08-02] MEDS: SODIUM CHLORIDE 0.9% 1000ML 1,000 ML IV SCH (17:18)
[2021-08-02] MEDS: FELODIPINE 5 MG TABCR PO SCH (21:03)
[2021-08-02] MEDS: DOXEPIN HCL 50 MG CAPSULE PO SCH (21:03)
[2021-08-02] MEDS: ACETAMINOPHEN 325 MG TAB PO PRN (21:03)
[2021-08-02] MEDS: METOPROLOL SUCC 50MG EXT REL TAB PO SCH (21:03)
[2021-08-02] MEDS: HEPARIN SOD 5,000 UNIT/0.5 ML VIAL SQ SCH (21:04)
[2021-08-03] MEDS: SODIUM CHLORIDE 0.9% 1000ML 1,000 ML IV SCH ×3 (03:44→15:25)
[2021-08-03] MEDS: DOXYCYCLINE HYCLATE 100 MG in DEXTROSE 5% 100 ML IV SCH ×2 (05:19→17:44)
[2021-08-03 07:15] LABS: Hematocrit (blood only) 44.7 % (37-47); Hemoglobin 14.2 g/dL (12.0-16.0); Mean Corpuscular Hemoglobin 30.9 pg (25-34); Mean Corpuscular Hgb Conc 31.8 g/dL (32-36); Mean Corpuscular Volume 97.4 fL (80-100); Nucleated RBC # (auto) 0.16 K/uL (0-0); Nucleated RBC % (auto) 1.8 %; RDW Coefficient of Variation 14.4 % (11.5-14.5); RDW Standard Deviation 50.4 fL (36.4-46.3); Red Blood Count 4.59 M/uL (4.2-5.4); White Blood Count 8.64 K/uL (4.8-10.8)
--- NOTE | 2021-08-03 07:17 | Electrocardiogram Report ---
Test Reason : Blood Pressure : / mmHG Vent. Rate : 098 BPM Atrial Rate : 098 BPM P-R Int : 124 ms QRS Dur : 076 ms QT Int : 344 ms P-R-T Axes : 077 070 070 degrees QTc Int : 439 ms Normal sinus rhythm Biatrial enlargement Abnormal ECG No previous ECGs available Confirmed by Jonh Mcgowan ([id number]) on 08/03/2021 7:17:20 AM Referred By: REFERRED SELF Confirmed By:Jonh Mcgowan
[2021-08-03 07:23] LABS: Platelet Count 78 K/uL (130-400)
[2021-08-03 07:25] LABS: INR 1.6 (0.9-1.1); Prothrombin Time 15.9 Seconds (9.0-12.0)
[2021-08-03 07:57] LABS: BUN Creatinine Ratio 81.9 (10-20); Calcium 8.3 mg/dl (8.5-10.1); Creatinine Clr Calc Pharmacy 49.7 ml/min; Est GFR (African American) 76.1 ml/min; Est GFR (Non-African American) 65.7 ml/min; Potassium 4.8 mmol/L (3.5-5.1)
[2021-08-03] MEDS ORDERED: LORazepam 0.25 MG/0.5 ML VIAL IV ONE (09:00)
[2021-08-03] MEDS: HEPARIN SOD 5,000 UNIT/0.5 ML VIAL SQ SCH ×2 (09:12→15:27)
[2021-08-03 09:39] LABS: Albumin Level 2.5 gm/dl (3.4-5.0); Bilirubin Direct 0.2 mg/dl (0-0.2); Bilirubin,Total 0.5 mg/dl (0.2-1); Total Protein 6.1 gm/dl (6.4-8.2)
--- NOTE | 2021-08-03 10:59 | Gastrointestinal Consultation ---
Date of Consultation August 03, 2021 Assessment & Plan (1) Lyme disease: (2) Multifocal pneumonia: (3) Abnormal LFTs: Liver numbers slightly improved today MRCP later today Continue IV Abx as per the primary team Most likely liver enzyme elevation secondary to combination of acute Lyme and Pneumonia Continue current therapy and supportive care No evidence of Fulminant Hepatic Failure. History of Present Illness Reason for Consultation: Elevated LFT's Attending Physician: John Flower MD History of Present Illness Rose Mary Hall is a 71 yo CF with an extensive PMHx who presented to the ER yesterday with complaints of generalized weakness, malaise and SOB. She was evaluated in the ER, and was noted to have hypoxia, with X-ray imaging consistent with a CAP. She was also noted to have elevated AST, ALT, Alk Phos and did undergo a RUQ US, which showed only some gallbladder sludge, but no evidence of acute cholecystitis, cholelithiasis or biliary ductal dilation. She did have positive findings on her Lyme Titers as well. She was subsequently admitted, placed on IVF and IV Abx. At the time I saw her, she continued to complain of weakness, general malaise, joint pain, SOB, and mild mid-epigastric pain rated 4/10 in intensity, without radiation or alleviating or exacerbating factors. She denies any history of significant alcohol use in her life, and denies any jaundice, acholic stools, dark urine or pruritus. She has no other complaints at this time. Allergies Allergy/AdvReac Type Severity Reaction Status Date / Time Iodinated Contrast Media Allergy Severe Difficulty Verified 08/02/21 11:19 Breathing Home Medications Medication Instructions Recorded Confirmed Type acetaminophen 500 mg tablet 1,000 mg PO Q6H PRN 08/02/21 08/02/21 History (Tylenol Extra Strength) doxepin 50 mg capsule 50 mg PO HS 08/02/21 08/02/21 History felodipine 5 mg tablet,extended 5 mg PO HS 08/02/21 08/02/21 History release 24 hr metoprolol succinate 50 mg 50 mg PO BID 08/02/21 08/02/21 History tablet,extended release 24 hr omeprazole 20 mg capsule,delayed 20 mg PO DAILY 08/02/21 08/02/21 History release Patient History Medical History Hypertension Osteoarthritis Surgical History H/O lumpectomy H/O tubal ligation Family History Father Cancer Mother Hypertension Social History Smoking Status: Former smoker Tobacco Type: Cigarettes Smoking End Date: July 07, 2021; Second Hand Exposure: No; Do You Dip or Chew Tobacco: No; Tobacco Cessation Education Requested by Patient: No Hx Alcohol Use: No Hx Substance Use: No Preferred Language: Czech Full Service Vending Driver Required: No Beliefs That Will Affect Care: None Current Living Situation: Spouse Other Information That Helps Us Care for You: No Feels Safe at Home: Yes Safety Concerns: Feels Safe At This Time Assistive Devices: Oxygen - Continuous Review of Systems Constitutional: as per Subjective / HPI Eyes: as per Subjective / HPI Ear, Nose, Mouth, Throat: as per Subjective / HPI Respiratory: as per Subjective / HPI Cardiovascular: as per Subjective / HPI Gastrointestinal: as per Subjective / HPI Musculoskeletal: as per Subjective / HPI Integumentary: as per Subjective / HPI Neurologic: as per Subjective / HPI Psychiatric: as per Subjective / HPI Endocrine: as per Subjective / HPI Hematologic / Lymphatic: as per Subjective / HPI Allergy / Immunological: as per Subjective / HPI Physical Exam Constitutional: WD/WN, vitals as above + ill appearing and + lethargic Eyes: + anicteric sclerae ENMT: external ear and nose normal, oropharynx normal Neck: trachea midline, no thyromegaly Respiratory: normal respiratory effort; no respiratory distress and no labored breathing Auscultation: + diminished lung sounds Cardiovascular: RRR, no murmur, no edema Gastrointestinal (Abdomen): Inspection/Auscultation: abdomen normal to inspection and normal bowel sounds; abdomen not distended Percussion/Palpation: + abdomen tender (midepigastric) and abdomen soft Skin: no rashes, warm and dry Psychiatric: Orientation: alert and oriented x 3 Affect: + depressed affect Results & Data ([facility]) Vital Signs (Past 12 Hours) Vital Signs Temp Pulse Resp BP Pulse Ox 08/03/21 08:22 37.0 C 84 18 122/63 98 08/03/21 04:00 36.4 C L 54 L 18 107/71 98 08/02/21 23:00 36.6 C 96 H 18 121/87 95 PG Care Time/CCT Total # of Minutes Spent Total Time Spent with Patient: Total time spent is greater than 50% in coordination of care (as documented) at patient's floor/unit and/or counseling patient: Coding Level of Care Code 56037 Initial Inpt Care Lvl 3 Diagnoses Lyme disease A69.20 Multifocal pneumonia J18.9 Abnormal LFTs R94.5
[2021-08-03] MEDS: cefTRIAXone SODIUM 1,000 MG in DEXTROSE 5% 50 ML IV SCH (15:25)
[2021-08-03] MEDS: PANTOprazole 40 MG TAB PO SCH (15:26)
[2021-08-03] MEDS: METOPROLOL SUCC 50MG EXT REL TAB PO SCH ×2 (15:26→21:36)
[2021-08-03] MEDS: ACETAMINOPHEN 325 MG TAB PO PRN (15:30)
[2021-08-03] MEDS ORDERED: Heparin IV Adult Wt-Based Low-Dose *NO* Bolus Protocol IV SCH (16:00)
--- NOTE | 2021-08-03 16:08 | Magnetic Resonance Report ---
MRCP CLINICAL HISTORY: Elevated hepatic transaminases. COMPARISON STUDY: Abdominal ultrasound dated 08/02/2021. Chest CT dated 08/02/2021. TECHNIQUE: Abdominal MRCP is performed utilizing various T2-weighted sequences in the axial and coron al planes. IV contrast was not administered for this examination. 3-D reformats are created and asses sed. The examination is significantly compromised by motion artifact. FINDINGS: The gallbladder is distended. There is no gallbladder wall thickening. Pericholecystic fluid is obser paul. No gallstones are identified. There is no intra or extrahepatic biliary ductal dilatation. The c ommon bile duct measures up to 4 mm diameter. There are no intraluminal filling defects to suggest ch oledocholithiasis. The pancreatic duct is normal in caliber. The liver is enlarged, measuring 18.3 cm in craniocaudal length. The liver is markedly heterogeneous, with numerous hepatic mass lesions identified. There is also nodularity of the hepatic surface conto ur. There is trace perihepatic ascites. The unenhanced spleen, pancreas, and adrenal glands are gross ly normal. The kidneys demonstrate mild cortical atrophy and are without hydronephrosis. The abdomina l aorta is normal in caliber. No bowel obstruction is identified. The duodenum appears significantly thick-walled and edematous. There is trace right pleural effusion with right basilar atelectasis. The re is evidence of multifocal osseous metastatic disease. IMPRESSION: 1. The liver is mildly enlarged with a nodular surface contour. The liver is infiltrated by numerous mass lesions, and top differential considerations include metastatic disease or possibly diffuse/mult ifocal hepatocellular carcinoma. 2. There is evidence of multifocal osseous metastatic disease. 3. The gallbladder is distended but otherwise normal as imaged. There is no intra or extrahepatic shonna iary ductal dilatation, and no choledocholithiasis. 4. Small volume of perihepatic and upper abdominal ascites. 5. The duodenum appears thick-walled and edematous. Duodenitis could have this appearance and clinica l correlation will be required. This could be further assessed with endoscopy if clinically warranted . Dictated: 08/03/2021 3:28 PM Transcribed: 08/03/2021 3:45 PM Shae [id number] [email or web address] Electronically signed by: Holland Bobo M.D. 08/03/2021 4:07 PM
[2021-08-03 17:04] LABS: Partial Thromboplastin Ratio 2.8
[2021-08-03 17:07] LABS: Partial Thromboplastin Time 73.7 Seconds (21.0-31.0)
[2021-08-03 17:58] LABS: Partial Thromboplastin Ratio 3.5
[2021-08-03] MEDS: DOXEPIN HCL 50 MG CAPSULE PO SCH (21:36)
[2021-08-03] MEDS: FELODIPINE 5 MG TABCR PO SCH (21:36)
--- NOTE | 2021-08-03 22:23 | Hospitalist Progress Note ---
Date of Service August 03, 2021 Assessment & Plan (1) Acute respiratory failure with hypoxia: (2) CAP (community acquired pneumonia): (3) Multifocal pneumonia: Plan: Present on admission with worsening shortness of breath and weakness and hypoxia In the ED, patient hypoxic on room air at 74%, currently requiring 6 L of oxygen via oxymask CT chest showing multifocal right-sided pneumonia Elevated D-dimer 17,000 in the ER received IV ceftriaxone and Zithromax Currently continue IV Rocephin and and doxycycline Continue oxygen supplement ECHO showed RV size and function are normal.: Flattening is noted consistent consistent with RV pressure and volume overload, pulmonary pressure =70 Blood culture pending Will need to get a V/Q scan to r/o PE (4) Thrombocytopenia: (5) Elevated LFTs: (6) Coagulopathy: Plan: Acute on admission 78 On admission AST 370, ALT 93, alk phos 254 and INR 1.7 RUQ US shows gallbladder sludge. MRCP showed he liver is mildly enlarged with a nodular surface contour. The liver is infiltrated by numerous mass lesions, and top differential considerations include metastatic disease or possibly diffuse/multifocal hepatocellular carcinoma. There is evidence of multifocal osseous metastatic disease. Continue monitor liver enzymes (7) D-dimer, elevated: Plan: Hypoxia Her clinical presentation look like PE Doppler of LE showed no evidence of PE Unable to get a CTA PE due to history of dyspnea with contrast Discussed with cardiology about the Echo and echo is compatible with PE V/Q sacn pending in the meantime, will start on low dose heparin drip Continue oxygen supplement (8) Hypertension: Plan: -BP controlled, continue felodipine and metoprolol (9) PALMIRA (acute kidney injury): Plan: Creatinine 1.3 (baseline ~ 0.9) Likely prerenal due to acute illness Received IVF Creatinine improved (10) Lyme disease: Plan: -Lyme IgG and IgM positive -On IV doxycycline as above (11) Acute UTI: Plan: Recently treated for a pansensitive E. coli UTI as an outpatient Urine culture grew E coli Continue Rocephin IV (12) Pulmonary nodule: Plan: -CT chest shows nodular consolidation within the right upper lobe measuring up to 2.5 cm -Outpatient follow-up (13) DVT prophylaxis: Plan: -SQ heparin Admission and Anticipated Discharge Date Admission Date: August 02, 2021 Subjective Patient was seen and examined for follow-up of shortness of breath Lying in bed with acute respiratory distress Currently she requires 6 L nasal cannula The patient has a very flat affect She continues to have pain Review of Systems Review of Systems: All systems reviewed & are unremarkable except as noted in Subjective Physical Exam Physical Exam: General- flat affect with acute respiratory distress Head- atraumatic Eyes- PERRL, EOMI, ENT- oropharynx clear Neck- supple, no JVD Lungs- Decrease BS Heart- regular rhythm; no murmur Abdomen- normal bowel sounds, soft, nontender Extremities- no calf tenderness Neuro- alert, PERRL, EOMI; no facial palsy; no dysarthria Skin- warm & dry Results & Data Results & Data ([facility]) Vital Signs (Past 12 Hours) Vital Signs Temp Pulse Pulse Resp BP Pulse Ox 08/03/21 21:43 16 91 08/03/21 21:33 103 H 111/71 08/03/21 19:42 36.8 C 106 H 19 123/77 95 08/03/21 17:23 115 H 08/03/21 16:45 37.1 C 117 H 23 117/74 91 08/03/21 12:11 36.4 C L 106 H 18 124/75 95
[2021-08-04 00:06] LABS: Partial Thromboplastin Time 106.2 Seconds (21.0-31.0)
[2021-08-04] MEDS: SODIUM CHLORIDE 0.9% 1000ML 1,000 ML IV SCH (02:09)
[2021-08-04] MEDS: DOXYCYCLINE HYCLATE 100 MG in DEXTROSE 5% 100 ML IV SCH ×2 (05:34→17:13)
[2021-08-04 06:21] LABS: Hematocrit (blood only) 42.6 % (37-47); Hemoglobin 13.2 g/dL (12.0-16.0); Mean Corpuscular Hemoglobin 31.1 pg (25-34); Mean Corpuscular Volume 100.5 fL (80-100); Nucleated RBC # (auto) 0.23 K/uL (0-0); Nucleated RBC % (auto) 2.9 %; RDW Coefficient of Variation 14.7 % (11.5-14.5); RDW Standard Deviation 53.4 fL (36.4-46.3); Red Blood Count 4.24 M/uL (4.2-5.4); White Blood Count 7.98 K/uL (4.8-10.8)
[2021-08-04 06:28] LABS: Platelet Count 80 K/uL (130-400)
[2021-08-04 06:38] LABS: Partial Thromboplastin Ratio 2.3
[2021-08-04 06:47] LABS: Basophils # (auto) 0.02 K/uL (0-0.2); Basophils % (auto) 0.3 %; Eosinophils # (auto) 0.03 K/uL (0-0.5); Eosinophils % (auto) 0.4 %; Immature Granulocytes # (auto) 0.14 K/uL (0.00-0.02); Immature Granulocytes % (auto) 1.8 %; Lymphocytes # (auto) 1.61 K/uL (1.2-3.4); Lymphocytes % (auto) 20.2 %; Monocytes # (auto) 0.45 K/uL (0.11-0.59); Monocytes % (auto) 5.6 %; Neutrophils # (auto) 5.73 K/uL (1.4-6.5); Neutrophils % (auto) 71.7 %; RBC Morphology Unremarkable
[2021-08-04 06:54] LABS: Partial Thromboplastin Time 60.9 Seconds (21.0-31.0)
[2021-08-04 06:58] LABS: Calcium 8.1 mg/dl (8.5-10.1); Creatinine Clr Calc Pharmacy 73.8 ml/min; Est GFR (Non-African American) 92.4 ml/min; Potassium 5.1 mmol/L (3.5-5.1)
[2021-08-04] MEDS: METOPROLOL SUCC 50MG EXT REL TAB PO SCH (08:45)
[2021-08-04] MEDS: PANTOprazole 40 MG TAB PO SCH (08:46)
[2021-08-04] MEDS: ACETAMINOPHEN 325 MG TAB PO PRN (09:10)
--- NOTE | 2021-08-04 09:27 | Gastroenterology Progress Note ---
Date of Service August 04, 2021 Assessment & Plan (1) Elevated LFTs: (2) Abnormal CT scan: Plan: her current condition makes her high risk for complications during any endoscopic procedure as she has a multifocal pneumonia. recs: --continue abx and treatment for pneumonia --can consider outpatient/elective EGD to further evaluate the duodenal abnormalities on CT scan when she is recovered from the pneumonia, perhaps in 2- 3 weeks --supportive care Admission and Anticipated Discharge Date Admission Date: August 02, 2021 Subjective no events overnight, VSS. MRCP shows some duodenitis and liver lesions. she is actively being treated for multifocal pneumonia, notes some abdominal pains and dyspnea. Review of Systems Constitutional: no fever and no chills Respiratory: no cough, no dyspnea and no dyspnea on exertion Cardiovascular: no chest pain and no dyspnea Gastrointestinal: as per Subjective / HPI Psychiatric: no depression and no anxiety Physical Exam Constitutional: WD/WN, vitals as above Respiratory: normal respiratory effort, lungs clear to auscultation Cardiovascular: RRR, no murmur, no edema Gastrointestinal (Abdomen): normal bowel sounds, soft, nontender, no hepatosplenomegaly Musculoskeletal: no lower extremity edema Psychiatric: A+Ox3, euthymic affect Results & Data Results & Data ([facility]) Vital Signs (Past 12 Hours) Vital Signs Temp Pulse Pulse Resp BP Pulse Ox 08/04/21 08:02 36.9 C 97 H 20 102/58 L 92 08/04/21 04:00 36.7 C 97 H 16 106/59 L 92 08/04/21 03:12 106 H 08/03/21 23:14 36.9 C 95 H 18 115/73 95 08/03/21 21:43 16 91 08/03/21 21:33 103 H 111/71 PG Care Time/CCT Total # of Minutes Spent Total Time Spent with Patient: Total time spent is greater than 50% in coordination of care (as documented) at patient's floor/unit and/or counseling patient: Coding Level of Care Code 92026 Subseq Hosp Care Lvl 3 Diagnoses Elevated LFTs R79.[address] scan R93.89
--- NOTE | 2021-08-04 14:48 | Nuclear Medicine Report ---
NUCLEAR PULMONARY PERFUSION SCAN CLINICAL HISTORY: Hypoxia. FINDINGS: The patient presented for a nuclear pulmonary perfusion scan, and 5.6 mCi of technetium 99m MAA was injected for the procedure. Following tracer injection the patient declined any imaging due to claustrophobia. IMPRESSION: Radioisotope injection as above. No images were obtained at the patient's request. Electronically signed by: Holland Bobo M.D. 08/04/2021 2:47 PM
[2021-08-04] MEDS: cefTRIAXone SODIUM 1,000 MG in DEXTROSE 5% 50 ML IV SCH (15:29)
[2021-08-04] MEDS ORDERED: LORazepam 0.25 MG/0.5 ML VIAL IV PRN (19:31)
[2021-08-04 20:21] LABS: INR 1.7 (0.9-1.1); Partial Thromboplastin Ratio 1.4; Partial Thromboplastin Time 38.1 Seconds (21.0-31.0); Prothrombin Time 16.2 Seconds (9.0-12.0)
[2021-08-04] MEDS ORDERED: LIDOCAINE 5% 1 PATCH TD SCH (21:45)
[2021-08-04] MEDS: HEPARIN SODIUM/DEXTROSE 25,000 UNITS/500 ML BAG IV SCH ×2 (22:55→23:32)
[2021-08-04] MEDS: DOXEPIN HCL 50 MG CAPSULE PO SCH (23:16)
[2021-08-04] MEDS ORDERED: XOPENEX/ATROVENT 1.25mg/0.5MG NEB COMBO NEB STA (23:18)
[2021-08-04] MEDS ORDERED: IPRATROPIUM BROMIDE NEB SOLN 0.02% 2.5 ML VIAL INH STA (23:26)
[2021-08-04] MEDS ORDERED: LEVALBUTEROL 1.25MG/0.5ML NEB INH STA (23:26)
[2021-08-04] MEDS ORDERED: methylPREDNISolone 40 MG in SYRINGE 0 ML IV ONE (23:45)
[2021-08-04 23:59] LABS: Albumin Level 2.2 gm/dl (3.4-5.0); Calcium 8.8 mg/dl (8.5-10.1); Creatinine Clr Calc Pharmacy 52.1 ml/min; Est GFR (African American) 80.5 ml/min; Est GFR (Non-African American) 69.4 ml/min; Potassium 5.4 mmol/L (3.5-5.1)
[2021-08-05 00:02] LABS: Albumin Globulin Ratio 0.6 (0.9-2); Bilirubin,Total 0.5 mg/dl (0.2-1); Globulin 3.6 gm/dl (2.5-4.0); Total Protein 5.8 gm/dl (6.4-8.2)
[2021-08-05] MEDS: FELODIPINE 5 MG TABCR PO SCH (00:08)
[2021-08-05] MEDS: METOPROLOL SUCC 50MG EXT REL TAB PO SCH (00:08)
[2021-08-05 00:13] LABS: Base Excess ABG -8.4 mEq/L (-9-1.8); HCO3 ABG 18 mmol/L (19-24); Oxygen Saturation ABG 90.6 % (90-95); PCO2 ABG 41 mmHg (35-46); PO2 ABG 65 mmHg (80-95); pH ABG 7.27 (7.35-7.45)
[2021-08-05 00:15] LABS: Allen Test Pos (Pos)
[2021-08-05] MEDS ORDERED: FUROSEMIDE 20 MG in SYRINGE 0 ML IV ONE (00:45)
--- NOTE | 2021-08-05 00:59 | Communication Note ---
Date of Service: August 05, 2021 Made aware by Stat Rad of abnormal CT head results. CT head earlier requested by a.m. provider due to patient lethargy noted by staff. IV Heparin only hung after patient got back from CT scan as per RN. Anticoagulation delayed secondary to patient's abnormal coags from liver disease. Mild to moderate acute left falcine, left tentorial, left temporoparietal subdural hematoma. Measures maximumthickness 8 mmleft falx at the level of the occipital lobe. Veryslight left to right midline shift of 2-3 mm. No hydrocephalus or herniation. PPE Lethargic, no respiratory distress O2 mask in place Decreased breath sounds Tachycardic Abdominal distention, no tenderness AP Subdural hematoma hx fall prior to admission as per family Underlying coagulopathy from liver disease Stop heparin (Medication had already been running for about 10 minutes as per RN.) [facility] [place] if family okay. Patient son (Mr. Darron Hall , contact #[phone]) updated over the phone of developments as patient's and daughter unreachable. He [place] [facility] [place]/intervention if necessary. Case discussed with Dr. Reis ([facility] [place] project development director agricultural production engineer[place] who has kindly accepted patient for transfer. Patient to transfer by [facility]. Dr. Reis recommends securing patient airway by endotracheal intubation/mechanical ventilation prior to transfer given patient lethargy and administration of protamine to reverse heparin. Patient transferred to ICU to facilitate to endotracheal intubation. Pharmacist consulted for Protamine dose for heparin reversal. Pharmacist unable to calculate for protamine dose given short duration of treatment. We will give vitamin K 10 mg IV in light of coagulopathy noted even before heparin administration.
[2021-08-05] MEDS: ALBUMIN 25% 12.5 GM/50 ML VIAL IV SCH ×2 (01:47→03:18)
--- NOTE | 2021-08-05 02:05 | Hospitalist Progress Note ---
Date of Service August 04, 2021 Assessment & Plan (1) Acute respiratory failure with hypoxia: (2) CAP (community acquired pneumonia): (3) Multifocal pneumonia: Plan: Present on admission with worsening shortness of breath and weakness and hypoxia In the ED, patient hypoxic on room air at 74%, currently requiring 6 L of oxygen via oxymask CT chest showing multifocal right-sided pneumonia Elevated D-dimer 17,000 in the ER received IV ceftriaxone and Zithromax Currently continue IV Rocephin and and doxycycline Continue oxygen supplement ECHO showed RV size and function are normal.: Flattening is noted consistent consistent with RV pressure and volume overload, pulmonary pressure =70 Blood culture no growth Pt went to get the V/Q scan and unfortunately the text was cancelled due to pt beeing claustrophobic Will need to get a V/Q scan to r/o PE I spoke to the nuclear medicine department to try to get it done now Unfortunately radiology recommended to wait 24hr to inject the patient again Will consult Pulmonology (4) Thrombocytopenia: (5) Elevated LFTs: (6) Coagulopathy: Plan: Acute on admission 78 On admission AST 370, ALT 93, alk phos 254 and INR 1.7 RUQ US shows gallbladder sludge. MRCP showed he liver is mildly enlarged with a nodular surface contour. The liver is infiltrated by numerous mass lesions, and top differential considerations include metastatic disease or possibly diffuse/multifocal hepatocellular carcinoma. There is evidence of multifocal osseous metastatic disease. Continue monitor liver enzymes MRCP result discussed with GI, recommended pt will need outpatient Liver biopsy done with IR when stable Daughter was notify about the Liver finding (7) D-dimer, elevated: Plan: Hypoxia Her clinical presentation look like PE Doppler of LE showed no evidence of PE Unable to get a CTA PE due to history of dyspnea with contrast Discussed with cardiology about the Echo and echo is compatible with PE V/Q sacn pending in the meantime, will start on low dose heparin drip Continue oxygen supplement Case discussed with Dr. Amos and Dr. Bharati Amos had a chance to review the chart. He think the elevated creatinine could be related to infection, PE, Lyme or underlyling malignancy Recommended to start on Low dose heparin drip for now while waiting for V/Q scan Discussed the anticoagulant risk with daughter such as bleeding (8) Hypertension: Plan: -BP controlled, continue felodipine and metoprolol (9) PALMIRA (acute kidney injury): Plan: Creatinine 1.3 (baseline ~ 0.9) Likely prerenal due to acute illness Received IVF Creatinine improved (10) Lyme disease: Plan: Lyme IgG and IgM positive Continue Doxycycline Waiting for comfirmation (11) Acute UTI: Plan: Recently treated for a pansensitive E. coli UTI as an outpatient Urine culture grew E coli Continue Rocephin IV (12) Liver mass: Plan: MRCP showed he liver is mildly enlarged with a nodular surface contour. The liver is infiltrated by numerous mass lesions, and top differential considerations include metastatic disease or possibly diffuse/multifocal hepatocellular carcinoma. There is evidence of multifocal osseous metastatic disease. Continue monitor liver enzymes MRCP result discussed with GI, recommended pt will need outpatient Liver biopsy done with IR when stable Daughter was notify about the Liver finding case discussed with Dr. Amos oncology recommended to check AFP, CA 19-9, CEA markers (13) Pulmonary nodule: Plan: CT chest shows nodular consolidation within the right upper lobe measuring up to 2.5 cm Outpatient follow-up (14) DVT prophylaxis: Plan: -SQ heparin Admission and Anticipated Discharge Date Admission Date: August 02, 2021 Subjective Patient was seen and examined for follow-up of shortness of breath Lying in bed with acute respiratory distress Currently she requires 14L oxygen supplement I spoke to daughter Mercy and provided with update Review of Systems Review of Systems: All systems reviewed & are unremarkable except as noted in Subjective Physical Exam Physical Exam: General- flat affect with acute respiratory distress Head- atraumatic Eyes- PERRL, EOMI, ENT- oropharynx clear Neck- supple, no JVD Lungs- Decrease BS Heart- +tachycardia Abdomen- normal bowel sounds, soft, nontender Extremities- no calf tenderness Neuro- alert, PERRL, EOMI; no facial palsy; no dysarthria Skin- warm & dry Results & Data Results & Data ([facility]) Vital Signs (Past 12 Hours) Vital Signs Temp Pulse Pulse Resp BP Pulse Ox Pulse Ox 08/05/21 01:37 37.0 C 106 H 28 H 96/63 L 90 08/04/21 23:48 105 H 28 H 91 08/04/21 19:24 37.1 C 106 H 22 126/79 94 08/04/21 16:01 104 H 08/04/21 15:36 36.4 C L 98 H 26 H 99/63 L 90 08/04/21 13:51 90
[2021-08-05] MEDS ORDERED: RAPID SEQUENCE INDUCTION BAG ONE (02:10)
[2021-08-05] MEDS ORDERED: PROTAMINE SULFATE IV ONE (02:10)
[2021-08-05] MEDS ORDERED: DEXTROSE 5% IV ONE (02:10)
--- NOTE | 2021-08-05 02:15 | Discharge Summary ---
Date of Service August 05, 2021 Discharge Data Consultations 08/02/21 12:41 ED Decision to Admit Stat 08/02/21 13:42 Consult Gastroenterology Routine 08/04/21 19:16 Consult Pulmonology Routine 08/05/21 01:57 Burn CD for patient Stat Hospital Course (1) Subdural hematoma: Made aware by Stat Rad of abnormal CT head results. CT head earlier requested by a.m. provider due to patient lethargy noted by staff. IV Heparin only hung after patient got back from CT scan as per RN. Anticoagulation delayed secondary to patient's abnormal coags from liver disease. Mild to moderate acute left falcine, left tentorial, left temporoparietal subdural hematoma. Measures maximumthickness 8 mmleft falx at the level of the occipital lobe. Veryslight left to right midline shift of 2-3 mm. No hydrocephalus or herniation. PPE Lethargic, no respiratory distress O2 mask in place Decreased breath sounds Tachycardic Abdominal distention, no tenderness AP Subdural hematoma hx fall prior to admission as per family Underlying coagulopathy from liver disease Stop heparin (Medication had already been running for about 10 minutes as per RN.) [facility] [place] for neurosurgical evaluation if family okay. Patient son (Mr. Darron Hall ., contact #[phone]) updated over the phone of developments as patient's and daughter unreachable. He requests [facility] [place] for neurosurgical evaluation/intervention if necessary. Case discussed with Dr. Reis ([facility] [place] gang ripsaw operator contamination consultant) who has kindly accepted patient for transfer. Patient to transfer by [facility]. Dr. Reis recommends securing patient airway by endotracheal intubation/mechanical ventilation prior to transfer given patient lethargy and administration of protamine to reverse heparin. Patient transferred to ICU to facilitate to endotracheal intubation. Pharmacist consulted for Protamine dose for heparin reversal. Pharmacist unable to calculate for protamine dose given short duration of treatment. We will give vitamin K 10 mg IV in light of coagulopathy noted even before heparin administration. (2) Acute respiratory failure with hypoxia: (3) CAP (community acquired pneumonia): (4) Multifocal pneumonia: Present on admission with worsening shortness of breath and weakness and hypoxia In the ED, patient hypoxic on room air at 74%, currently requiring 6 L of oxygen via oxymask CT chest showing multifocal right-sided pneumonia Elevated D-dimer 17,000 in the ER received IV ceftriaxone and Zithromax Currently continue IV Rocephin and and doxycycline Continue oxygen supplement ECHO showed RV size and function are normal.: Flattening is noted consistent consistent with RV pressure and volume overload, pulmonary pressure =70 Blood culture no growth Pt went to get the V/Q scan and unfortunately the text was cancelled due to pt beeing claustrophobic Will need to get a V/Q scan to r/o PE I spoke to the nuclear medicine department to try to get it done now Unfortunately radiology recommended to wait 24hr to inject the patient again Will consult Pulmonology (5) Thrombocytopenia: (6) Elevated LFTs: (7) Coagulopathy: Acute on admission 78 On admission AST 370, ALT 93, alk phos 254 and INR 1.7 RUQ US shows gallbladder sludge. MRCP showed he liver is mildly enlarged with a nodular surface contour. The liver is infiltrated by numerous mass lesions, and top differential considerations include metastatic disease or possibly diffuse/multifocal hepatocellular carcinoma. There is evidence of multifocal osseous metastatic disease. Continue monitor liver enzymes MRCP result discussed with GI, recommended pt will need outpatient Liver biopsy done with IR when stable Daughter was notify about the Liver finding (8) D-dimer, elevated: Hypoxia Her clinical presentation look like PE Doppler of LE showed no evidence of PE Unable to get a CTA PE due to history of dyspnea with contrast Discussed with cardiology about the Echo and echo is compatible with PE V/Q sacn pending in the meantime, will start on low dose heparin drip Continue oxygen supplement Case discussed with Dr. Amos and Dr. Bharati Amos had a chance to review the chart. He think the elevated creatinine could be related to infection, PE, Lyme or underlyling malignancy Recommended to start on Low dose heparin drip for now while waiting for V/Q scan Discussed the anticoagulant risk with daughter such as bleeding (9) Hypertension: -BP controlled, continue felodipine and metoprolol (10) PALMIRA (acute kidney injury): Creatinine 1.3 (baseline ~ 0.9) Likely prerenal due to acute illness Received IVF Creatinine improved (11) Lyme disease: Lyme IgG and IgM positive Continue Doxycycline Waiting for comfirmation (12) Acute UTI: Recently treated for a pansensitive E. coli UTI as an outpatient Urine culture grew E coli Continue Rocephin IV (13) Liver mass: MRCP showed he liver is mildly enlarged with a nodular surface contour. The liver is infiltrated by numerous mass lesions, and top differential considerations include metastatic disease or possibly diffuse/multifocal hepatocellular carcinoma. There is evidence of multifocal osseous metastatic disease. Continue monitor liver enzymes MRCP result discussed with GI, recommended pt will need outpatient Liver biopsy done with IR when stable Daughter was notify about the Liver finding case discussed with Dr. Amos oncology recommended to check AFP, CA 19-9, CEA markers (14) Pulmonary nodule: CT chest shows nodular consolidation within the right upper lobe measuring up to 2.5 cm Outpatient follow-up (15) DVT prophylaxis: SCDS
[2021-08-05] MEDS ORDERED: PROPOFOL IV EMULSION 10 MG/ML 100 ML VIAL IV ONE (02:23)
[2021-08-05] MEDS ORDERED: MANNITOL 25% 12.5 GM/50 ML VIAL IV ONE (02:30)
[2021-08-05] MEDS ORDERED: SODIUM CHLORIDE 0.9% 10ML FLUSH IV ONE (02:30)
[2021-08-05] MEDS ORDERED: 1.2 MICRON FILTER 1 EA IV ONE (02:30)
[2021-08-05] MEDS ORDERED: PHYTONADIONE 10 MG in SODIUM CHLORIDE 0.9% 50 ML IV ONE (02:30)
--- NOTE | 2021-08-05 02:33 | Procedure Note ---
Procedure Note Date of Service August 05, 2021 Note INTUBATION PROCEDURE NOTE: Provider: LYNETTE Rendon Attending: Enriqueta Bell time-out was completed verifying correct patient, procedure, site, positioning. Patient was evaluated and required intubation for declining neurological status following subdural hematoma and need for secure airway for transfer to tertiary center. Sedative agent used: Propofol Paralysis agent used: Rocuronium Emergent consent was implied given patients rapidly declining clinical status and need for airway protection. The patient was prepared in the appropriate fashion. Sedation was achieved utilizing propofol and rocuronium, per Dr. Harden administration. The patient was easily ventilated using [id number] to achieve adequate oxygenation. A 7.5 [place] endotracheal tube was successfully placed with use of Gluideoscope to 22 cm at the lip. The stylette was removed and balloon was inflated with 10mL of air. Appropriate Colorimetric change was appreciated. Bilateral breath sounds were heard without air sounds in the abdomen. Dr. Girma Harden was present for the entire procedure. Post Intubation Chest X-ray confirms placement without pneumothorax. Patient tolerated the procedure well and there were no immediate complications. Coding CPT Codes Resuscitation - Resuscitation: 25524 Endotracheal Intubation, emergency ([id number]) [facility] [place] Resuscitation Resuscitation: 06150 Endotracheal Intubation, emergency
--- NOTE | 2021-08-05 02:33 | Critical Care Consultation ---
Date of Consultation August 05, 2021 Assessment & Plan (1) Subdural hematoma: Reason Critically Ill: 71-year-old female being treated for multifocal pneumonia, suspected pulmonary embolism. Now admitted to ICU following development of subdural hematoma with 2 to 3 cm midline shift and emergently intubated for declining neurological status, worsening hypoxia and awaiting transfer to tertiary center. Neuro - Subdural hematomaCT head with 8 mm subdural hematoma with 2 to 3 cm left-to- right midline shift -Patient now awaiting transfer to tertiary center for neurosurgery eval -Anticoagulation discontinued. Protamine not indicated as PTT was 38 at 1939 and heparin was on hold -We will keep head elevated 30 degrees -25 g mannitol administered -Sodium 145 -6 mg IV dexamethasone administered -We will maintain CO2 30-35 Cardiac - Hypotension following sedation administration. Currently on low-dose Levophed. Titrate to maintain maps greater than 65 Continuous monitor on telemetry Hold antihypertensives but avoid hypertension in the setting of subdural hematoma Respiratory - Acute hypoxic respiratory failuremultifocal pneumonia versus pulmonary embolism -Patient unable to undergo CTA chest due to contrast allergy. Was unable to tolerate VQ scan earlier today due to claustrophobia -Unable to anticoagulate due to subdural hematoma. Patient may need IVC filter -Continue broad-spectrum antibiotics -Mechanically ventilated, wean vent as tolerated GI - N.p.o. RENAL/LYTES - Creatinine stable - Foleystrict I's and O's ENDO - ICU hyperglycemic protocol HEME - H&H stable ID - Continue ceftriaxone, doxycycline LINES/IV ACCESS - Peripheral IVs, ET tube DVT PROPHYLAXIS - SCDs, no anticoagulation in the setting of subdural hematoma I have personally spent 40 minutes of critical care time in the direct management of this patient. This is a life/limb threatening event. This includes time spent evaluating patient, direct bedside care, chart review, placing orders, interpretation of diagnostic studies, discussion with consultants, patient, and family members, as well as other required patient management activities. This time is exclusive of all separately billable procedures, and teaching time and separate from and in addition to any other critical care service time. Thank you for allowing us to participate in the care of this patient. Please refer to my attending physician's documentation for any further recommendations. (2) Liver mass: (3) Pulmonary nodule: (4) Lyme disease: (5) Multifocal pneumonia: (6) Thrombocytopenia: (7) Abnormal LFTs: (8) D-dimer, elevated: (9) Positive Lyme disease serology: (10) Hyperkalemia: (11) Coagulopathy: (12) PALMIRA (acute kidney injury): (13) CAP (community acquired pneumonia): (14) Elevated LFTs: (15) Acute respiratory failure with hypoxia: (16) Hypertension: History of Present Illness Attending Physician: John Flower MD History of Present Illness The patient is a 71-year-old female with PMH including HTN, osteoarthritis, tobacco abuse, who initially presented to the emergency department on 08/02 for evaluation of shortness of breath and generalized weakness. She was admitted and undergoing treatment for multifocal pneumonia and hypoxia. On this admission she was noted to have MRCP that showed duodenitis and liver lesions with possibility of metastatic disease or hepatocellular carcinoma with plan for liver biopsy once stable. She had elevated D-dimer and suspicion for pulmonary embolism but could not undergo CTA chest due to contrast allergy and was unable to tolerate VQ scan due to claustrophobia. She was empirically started on heparin drip. Was notified this morning by the hospitalist that the patient had decompensating neurological status throughout the night and went for CT head, which revealed mild to moderate acute left falcine, left tentorial, left temporoparietal subdural hematoma measuring 8 mm at the occipital lobe with 2 to 3 mm left to right midline shift. Patient has been accepted to [facility] for evaluation by neurosurgery. Due to declining neurological status and worsening hypoxia decision was made to emergently intubate prior to transfer. Patient has been transferred to the ICU and successfully intubated and awaiting stat transfer via helicopter to tertiary center. Allergies Allergy/AdvReac Type Severity Reaction Status Date / Time Iodinated Contrast Media Allergy Severe Difficulty Verified 08/02/21 11:19 Breathing Patient History Medical History Hypertension Osteoarthritis Surgical History H/O lumpectomy H/O tubal ligation Family History Father Cancer Mother Hypertension Social History Smoking Status: Former smoker Tobacco Type: Cigarettes Smoking End Date: July 07, 2021; Second Hand Exposure: No; Do You Dip or Chew Tobacco: No; Tobacco Cessation Education Requested by Patient: No Hx Alcohol Use: No Hx Substance Use: No Preferred Language: Peruvian Rn Oncology Research Required: No Beliefs That Will Affect Care: None Current Living Situation: Spouse Other Information That Helps Us Care for You: No Feels Safe at Home: Yes Safety Concerns: Feels Safe At This Time Assistive Devices: Denture - Upper, Glasses and Oxygen - Continuous Review of Systems Review of Systems: Unobtainable due to cognitive status and Unobtainable due to endotracheal tube Physical Exam Constitutional: + altered mental status and + mechanically ventilated ENMT: external ear and nose normal, oropharynx normal Neck: trachea midline, no thyromegaly Respiratory: Lungs rhonchi bilaterally, symmetrical chest wall movement. Endotracheal tube 22 cm at the lip. Cardiovascular: RRR, no murmur, no edema Heart Sounds: normal S1 and normal S2 Gastrointestinal (Abdomen): normal bowel sounds, soft, nontender, no hepatosplenomegaly Musculoskeletal: Unable to assess due to sedation/paralytic Skin: no rashes, warm and dry Neurologic: Unable to assess due to sedation/paralytic Psychiatric: Unable to assess due to sedation/paralytic Genitourinary: Reagan catheter present Results & Data Results & Data ([facility]) Vital Signs (Past 12 Hours) Vital Signs Temp Pulse Pulse Resp BP Pulse Ox 08/05/21 01:37 37.0 C 106 H 32 H 96/63 L 90 08/04/21 23:48 105 H 28 H 91 08/04/21 19:24 37.1 C 106 H 22 126/79 94 08/04/21 16:01 104 H 08/04/21 15:36 36.4 C L 98 H 26 H 99/63 L 90 Coding Level of Care Code Critical Care 1st 30-74 mins Diagnoses Subdural hematoma S06.5X9A Liver mass R16.0 Pulmonary nodule R91.1 Lyme disease A69.20 Multifocal pneumonia J18.9 Thrombocytopenia D69.6 Abnormal LFTs R94.5 D-dimer, elevated R79.89 Positive Lyme disease serology R76.8 Hyperkalemia E87.5 Coagulopathy D68.9 PALMIRA (acute kidney injury) N17.9 CAP (community acquired pneumonia) J18.9 Elevated LFTs R79.89 Acute respiratory failure with hypoxia J96.01 Hypertension I10
[2021-08-05] MEDS ORDERED: NOREPINEPHRINE/D5W 8 MG/508 ML IV ONE (02:34)
[2021-08-05] MEDS ORDERED: ICU PROTOCOL FOR HYPERGLYCEMIA PRN (02:41)
[2021-08-05 03:02] LABS: iSTAT Allen Test Pass; iSTAT Art Bld Gas pCO2 Correct 50 mmHg (35-46); iSTAT Art Bld Gas pH Corrected 7.191 (7.35-7.45); iSTAT Arterial Blood Gas HCO3 19 meg/L (19-24); iSTAT Arterial Blood Gas pCO2 49 mmHg (35-46); iSTAT Arterial Blood Gas pO2 56 mmHg (80-95); iSTAT Arterial Blood Gas pO2 C 58; iSTAT Carbon Dioxide 21 mmol/L (24-31); iSTAT FiO2 50 %; iSTAT Hematocrit 34 % (37-47); iSTAT Hemoglobin 11.6 g/dl (12.0-16.0); iSTAT Potassium 5.3 mmol/L (3.3-5.0); iSTAT Site R Radial; iSTAT Sodium 145 mmol/L (135-144)
[2021-08-05] MEDS ORDERED: dexAMETHasone 6 MG in SYRINGE 0 ML IV ONE (03:05)
[2021-08-05 04:28] LABS: iSTAT Allen Test Pass; iSTAT Art Bld Gas pCO2 Correct 54 mmHg (35-46); iSTAT Art Bld Gas pH Corrected 7.151 (7.35-7.45); iSTAT Arterial Blood Gas HCO3 19 meg/L (19-24); iSTAT Arterial Blood Gas pCO2 51 mmHg (35-46); iSTAT Arterial Blood Gas pH 7.17 (7.35-7.45); iSTAT Arterial Blood Gas pO2 79 mmHg (80-95); iSTAT Arterial Blood Gas pO2 C 87; iSTAT Carbon Dioxide 20 mmol/L (24-31); iSTAT FiO2 60 %; iSTAT Hematocrit 37 % (37-47); iSTAT Hemoglobin 12.6 g/dl (12.0-16.0); iSTAT Potassium 5.8 mmol/L (3.3-5.0); iSTAT Site L Radial; iSTAT Sodium 143 mmol/L (135-144)
[2021-08-05] MEDS ORDERED: ACETAMINOPHEN 1,000 MG/100 ML VIAL IV STA (04:47)
[2021-08-05 05:26] LABS: iSTAT Allen Test Pass; iSTAT Art Bld Gas pCO2 Correct 46 mmHg (35-46); iSTAT Art Bld Gas pH Corrected 7.193 (7.35-7.45); iSTAT Arterial Blood Gas HCO3 17 meg/L (19-24); iSTAT Arterial Blood Gas pCO2 43 mmHg (35-46); iSTAT Arterial Blood Gas pH 7.22 (7.35-7.45); iSTAT Arterial Blood Gas pO2 102 mmHg (80-95); iSTAT Arterial Blood Gas pO2 C 114; iSTAT Carbon Dioxide 19 mmol/L (24-31); iSTAT FiO2 60 %; iSTAT Hematocrit 35 % (37-47); iSTAT Hemoglobin 11.9 g/dl (12.0-16.0); iSTAT Potassium 5.9 mmol/L (3.3-5.0); iSTAT Site L Radial; iSTAT Sodium 140 mmol/L (135-144)
[2021-08-05] MEDS ORDERED: ROCURONIUM BROMIDE 10 MG/ML 5 ML VIAL IV ONE (05:42)
--- NOTE | 2021-08-05 07:39 | CT Scan Report ---
CT head/brain wo con Clinical Indication: MN ^lethargy, r/o any lesion. Technique: Contiguous axial CT images of the head were acquired from the base of the skull to the loreta jarett without intravenous contrast administration. Images were viewed in brain, subdural and [facility]. Automated dose lowering techniques and/or adjustment according to patient size were utilized for this exam. Comparison: None available at the time of this dictation. Findings: There is a left falcine, tentorial, and temporoparietal subdural hematoma measuring up to 7 mm in the temporoparietal component and 8 mm in the falcine component. There is approximately 5 mm of rightwar d midline shift. Mild ventriculomegaly and sulcal enlargement is appropriate for age. Imaged portions of the paranasal sinuses and mastoid air cells are clear. The orbits appear normal. There are no acute fractures of the calvaria or scalp swelling. Impression: Left falcine, tentorial, and temporoparietal subdural hematoma with mild rightward midline shift. ACT 112: Negative or not required by law. Electronically signed by: Blake Harvey M.D. 08/05/2021 7:38 AM
--- NOTE | 2021-08-05 08:50 | XRay Report ---
XR chest 1V portable INDICATION: MN ^low o2 . TECHNIQUE: Single frontal radiograph of the chest was obtained. Comparison: None available at the time of this dictation. FINDINGS: No lines and tubes are seen. The cardiomediastinal silhouette is normal. Prominent appearance of the left-sided aortic arch may be secondary to overlying objects outside the patient. The lungs are clear . No evidence of pleural effusion or pneumothorax. IMPRESSION: No acute chest disease. ACT 112: Negative or not required by law. Electronically signed by: Blake Harvey M.D. 08/05/2021 8:48 AM
--- NOTE | 2021-08-05 09:18 | XRay Report ---
XR chest 1V portable INDICATION: MN ^Intubation. TECHNIQUE: Single frontal radiograph of the chest was obtained. Comparison: Comparison is made to chest one view 08/04/2021 FINDINGS: Endotracheal tube terminates 46 mm from the jing. An enteric tube side-port is seen at the gastroes ophageal junction. The cardiomediastinal silhouette is normal. Patchy airspace opacities are seen mos t prominent in the right lung base, increased from prior exam. No evidence of pleural effusion or pne umothorax. IMPRESSION: 1. Satisfactory position of endotracheal tube. Enteric tube can be advanced approximately 5 mm for i mproved positioning. 2. Patchy airspace opacities most prominent in the right lung base. ACT 112: Negative or not required by law. Electronically signed by: Blake Harvey M.D. 08/05/2021 9:16 AM
[2021-08-06 14:46] LABS: 18KDIGG Band REACTIVE; 23KDIGG Band NON-REACTIVE; 23KDIGM Band REACTIVE; 28KDIGG Band NON-REACTIVE; 30KDIGG Band NON-REACTIVE; 39KDIGG Band REACTIVE; 39KDIGM Band REACTIVE; 41KDIGG Band REACTIVE; 41KDIGM Band NON-REACTIVE; 45KDIGG Band NON-REACTIVE; 58KDIGG Band NON-REACTIVE; 66KDIGG Band REACTIVE; 93KDIGG Band NON-REACTIVE; Lyme Antibodies, WB IgG NEGATIVE (NEGATIVE); Lyme Antibodies, WB IgM POSITIVE (NEGATIVE)
--- NOTE | 2021-08-14 07:32 | Coding Query ---
CODING QUERY To promote full compliance with coding requirements relating to patient care, provider participation is requested in all cases of hair tinter uncertainty. Please assist us with the question(s) below: Coding Question(s): Patient admitted with acute hypoxic resp failure and pneumonia. Subdural Hematoma identified after admission. Seeking to clarify the etiology of the Subdural Hematoma. Please check the phrase that applies. Thanks for your help! PARVIN Ramirez [facility] Physician's Response(s): Non-traumatic Subdural Hematoma, POA Traumatic Subdural Hematoma, POA Cannot Clinically Correlate if Subdural Hematoma nontraumatic or tramatiic Other: Please document: Principal Diagnosis: "that condition established after study, to be chiefly responsible for occasioning the admission of the patient to the hospital for care." Co-Existing Principal Diagnosis: "when two or more diagnoses equally meet the criteria for principal diagnosis as determined by the circumstances of admission, diagnostic work up, and/or therapy provided, and the Alphabetic Index, Tabular List, or another coding guideline does not provide sequencing direction, any one of the diagnoses may be sequenced first." "When the physician has documented what appears to be a current diagnosis in the body of the record, but has not included the diagnosis in the final diagnostic statement, the physician should be asked whether the diagnosis should be added." (Source [facility]oding [facility] 2 QTR90. p3-4) SHAHNAZ
== END 2021-08-05 05:43 | disposition short-term general hospital (02) | DRG 208 ==
LOC: ED 09:41 → 2S 12:51 → 1E 08-05 02:47